=== PATIENT | female | born 2000 | race Caucasian/White ===

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

== ENCOUNTER → 2019-03-19 11:10 | Outpatient (CLI) | payer MEDICAID, SELFPAY ==
[2019-03-19 12:32] LABS: Basophils % 0.3 % (0.1-2.0); Eosinophils # 0.1 K/mm3 (0.0-0.4); Eosinophils % 0.9 % (0.1-12.0); Hematocrit 47.7 % (37.0-47.0); Hemoglobin 14.9 g/dL (12.2-16.2); Lymphocytes # 1.7 K/mm3 (0.7-4.5); Lymphocytes % 30.2 % (10-50); Mean Corpuscular HGB Conc 31.4 g/dL (31.8-35.4); Mean Corpuscular Hemoglobin 31.4 pg (27.0-31.2); Mean Platelet Volume 8.2 fl (7.4-10.4); Monocytes # 0.2 K/mm3 (0.1-1.0); Monocytes % 3.9 % (1.7-9.3); Neutrophils # 3.6 K/mm3 (1.8-7.8); Neutrophils % 64.7 % (37.0-80.0); Platelet Count 325 K/mm3 (142-424); Red Blood Count 4.77 M/mm3 (4.20-5.40); Red Cell Distribution Width 12.6 % (11.5-17.5); White Blood Count 5.6 K/mm3 (4.5-13.0)
[2019-03-19 22:02] LABS: Alanine Aminotransferase 12 U/L (12-78); Albumin Level 4.7 gm/dL (3.4-5.0); Albumin/Globulin Ratio 1.3 (1.1-1.8); Alkaline Phosphatase 94 U/L (46-116); Anion Gap 18.5 mEq/L (5-15); Aspartate Amino Transferase 9 U/L (15-37); Bilirubin,Total 0.4 mg/dL (0.2-1.0); Blood Urea Nitrogen 5 mg/dL (7-18); Calcium 9.3 mg/dL (8.5-10.1); Carbon Dioxide 26 mmol/L (21.0-32.0); Chloride 100 mmol/L (98-107); Chol/HDL Ratio 2.3 (1-3.5); Cholesterol 163 mg/dL (140-200); Creatinine,Serum 0.65 mg/dL (0.55-1.02); Estimated Glomerular Filt Rate 116 ml/min (>60); GFR (African American) 141 ML/MIN (>60); Globulin 3.5 gm/dl (1.3-3.2); Glucose 79 mg/dL (74-106); HDL Cholesterol 70 mg/dL (29-89); LDL Cholesterol 80 mg/dL (0-130); Potassium 3.5 mmoL/L (3.5-5.1); Sodium 141 mmol/L (136-145); T4 (Thyroxine) 10.4 ug/dl (5.4-10.6); Thyroid Stimulating Hormone 2.17 uIU/ml (0.516-4.13); Total Protein,Serum 8.2 gm/dL (6.4-8.2); Triglycerides 64 mg/dL (30-200); VLDL Cholesterol 13 mg/dL (0-40)
[2019-03-20 14:47] LABS: Vitamin D 25 Hydroxy 13.1 ng/mL (30.0-100.0)
== END ==
PROVIDERS: Visit Provider Nurse Practitioner Family
DX: F90.9 Attention-deficit hyperactivity disorder, unspecified type (principal); R53.83 Other fatigue; E55.9 Vitamin D deficiency, unspecified
CPT/HCPCS: 36415; 80053; 80061; 82652; 84436; 84443; 85025

== ENCOUNTER → 2019-08-24 10:50 | Outpatient (CLI) | payer MEDICAID, SELFPAY ==
--- NOTE | 2019-08-24 10:55 | XR_ITS ---
PROCEDURE: XR SCOLIOSIS SURVEY CLINICAL INDICATION: back pain COMPARISON: No exams were available for comparison FINDINGS: There is very minor diffuse levo scoliotic curvature of the thoracic and lumbar spine from approximately T2-L5 probably less than 5 degrees all thoracic and lumbar vertebrae appear intact. There is no paraspinal mass. IMPRESSION: Minor diffuse levo scoliotic curvature thoracic and lumbar spine Dictated by: Dr. Jesus Hartman MD 08/24/2019 11:[address] Jesus Hartman MD in [place] 08/24/2019 11:26
== END ==
PROVIDERS: PCP Nurse Practitioner Family; Visit Provider Nurse Practitioner Family
DX: M54.9 Dorsalgia, unspecified (principal)
CPT/HCPCS: 72081

== ENCOUNTER 2019-10-25 14:30 | Outpatient (RCR) | payer MEDICAID, SELFPAY | END 2019-10-25 14:35 | disposition home or self-care (01) | LOC: PT 14:30 | PROVIDERS: PCP Nurse Practitioner Family; Visit Provider Orthopaedic Surgery Adult Reconstructive Orthopaedic Surgery | DX: M54.5 Low back pain (principal) | CPT/HCPCS: 97110; 97163 ==

== ENCOUNTER 2019-12-20 13:10 | Emergency (ER) | payer MEDICAID, SELFPAY ==
[2019-12-20 13:49] VITALS: BP 122/58; PULSE 78; RESP 20; TEMP 37.1; O2SAT 100; BMI 15.2
--- NOTE | 2019-12-20 14:00 | HMH.EDUTC ---
[facility] [place] Clinical Impression: Hematuria Qualifiers: Hematuria type: unspecified type Qualified Code(s): R31.9 - Hematuria, unspecified Disposition: Home, Self-Care Condition on Discharge: Good Instructions: Blood in Urine, DI for Hematuria Additional Instructions: Make sure to drink plenty of fluids *Follow up with Family doctor if symptoms return or worsen Straight to ER if any difficulty in urination or worsening of blood in urine or any life threatening symptoms Return if needed Referrals: Ivon Shahid APRN [Primary Care Provider] - As needed Time of Disposition: 14:05 Medical Decision Making - Bhanu Inquiry Pt receiving controlled substance: No Bhanu was queried for this patient: No Vital Signs: 12/20/19 13:49 12/20/19 14:08 Temperature 98.7 F 98.7 F Temperature Source Oral Pulse Rate 78 Pulse Rate [Right Brachial] 78 Respiratory Rate 20 20 Blood Pressure 122/58 L Blood Pressure [Right Arm] 122/58 L Blood Pressure Mean [Right Arm] 79 Blood Pressure Source [Right Arm] Automatic Cuff Blood Pressure Position [Right Arm] Sitting 02 Sat by Pulse Oximetry 100 Oxygen Delivery Method Room Air - Lab Data Lab results reviewed: Yes: I reviewed the patient's lab results. Medical Decision Narrative: Discussed transfer to the ED for further evaluation and examination for Kidney Stones and patient declined States that she is feeling much better and no longer having pressure and unsure if she may be starting her monthly because it is time and she would follow up with her PCP or go straight to ER if symptoms return [facility] [place] HPI - General Stated complaint: Possible bladder infection Time Seen by Provider: 12/20/19 14:00 Mode of Arrival: Ambulatory Source of Information: Patient Limitations: No Limitations Description of Symptoms (Recalled from Triage Doc. by RN): PATIENT C/O PRESSURE AND BLOOD WITH URINATION SINCE YESTERDAY HEENT Symptoms (Recalled from RN notes): No Resp Symptoms (Recalled from RN notes): No Skin Symptoms (Recalled from RN notes): No MS Symptoms (Recalled from RN notes): No Functional Status (Recalled from RN notes): WNL - History of Present Illness Provider Complaint: Mother states that she complained of feeling of pressure and feeling of urgency yesterday and she urinated and noticed a small amount of blood on the tissue States that she felt like something scratched her States that today it is better but wanted to get checked for UTI - Related Data Previous Rx's Medication Instructions Recorded ergocalciferol (vitamin D2) 1,250 50,000 unit PO QWEEK #12 cap 09/19/19 mcg (50,000 unit) capsule loratadine 10 mg tablet 10 mg PO DAILY #90 tab 09/19/19 clonidine HCl 0.2 mg tablet See Rx Instructions .ROUTE 12/04/19 .COMPLEX #90 tab dextroamphetamine-amphetamine ER 25 mg PO DAILY 30 Days #30 each 12/13/19 25 mg capsule,3 bead,ext release 24hr Allergies Allergy/AdvReac Type Severity Reaction Status Date / Time No Known Allergies Allergy Verified 12/12/19 12:57 - Worker's Comp Is this a Worker's Comp case?: No [facility] History - Hepatitis A Screen Drug use history?: No High risk sexual behaviors?: No History of sexually transmitted infection?: No Currently employed?: No Childcare worker?: No Do you have indoor plumbing?: Yes Do you have electricity?: Yes Attestation statement:: This patient has been screened for Hepatitis A risk factors. I have reviewed the patient's past medical history: Yes Medical History: Reports:: Anxiety Denies:: Diabetes Mellitus Type 1, Diabetes Mellitus Type 2 Other Medical History: Reports: Other Comment: ADHD Other Surgeries: Yes: No Previous Surgery, Other Amputation: No Fractures: No Comment: PREMATURE/TRACHEOTOMY - Social History Smoking Status: Current every day smoker Tobacco Type: cigarettes # Packs/Day (cigarettes): 1 Alcohol Intake: never Alcohol Intake Frequency:: other Substance Use Type: denies
[2019-12-20 14:08] VITALS: BP 122/58; PULSE 78; RESP 20; TEMP 37.1; O2SAT 100
[2019-12-20 20:39] LABS: Apearance,Urine Clear (Clear); Color,Urine Yellow (Yellow); PH,Urine 5.5 (5.0-8.5); Protein,Urine Negative (Negative)
[2019-12-20 20:40] LABS: Bilirubin,Urine Negative (Negative); Blood, Urine 2+ (Negative); Glucose,Urine (UA) Negative (Negative); Ketones,Urine Negative (Negative)
[2019-12-20 20:41] LABS: UTC Leukocyte Esterase,Urine Negative (Negative); UTC Nitrate,Urine Negative (Negative); Urobilinogen,Urine 0.2 EU/dl (0.2)
== END 2019-12-20 14:11 | disposition home or self-care (01) ==
PROVIDERS: Emergency Provider Nurse Practitioner; PCP Nurse Practitioner Family
DX: R31.9 Hematuria, unspecified (principal); Z87.442 Personal history of urinary calculi; F41.9 Anxiety disorder, unspecified; F17.210 Nicotine dependence, cigarettes, uncomplicated
CPT/HCPCS: 81003; 99201

== ENCOUNTER 2019-12-25 14:35 | Emergency (ER) | payer MEDICAID, SELFPAY ==
[2019-12-25 14:49] VITALS: BP 121/79; PULSE 91; RESP 20; TEMP 36.6; O2SAT 99; BMI 13.9
--- NOTE | 2019-12-25 15:20 | HMH.EDUTC ---
[facility] [place] Dis[place] Clinical Impression: UTI (urinary tract infection) Qualifiers: Urinary tract infection type: site unspecified Hematuria presence: with hematuria Qualified Code(s): N39.0 - Urinary tract infection, site not specified Disposition: Home, Self-Care Condition on Discharge: Good Instructions: Urinary Tract Infection, DI for Urinary Tract Infection (UTI) Additional Instructions: Drink plenty of fluids. Take tylenol or ibuprofen for pain or fever. Take the medications as directed. Follow up with your regular doctor. GO TO THE ER FOR ANY WORSENING SYMPTOMS The pyridium will make your urine turn orange, this is an expected side effect. It will stain your clothes if it comes into contact with them. Prescriptions: Sulfamethoxazole/Trimethoprim [Bactrim DS tablet] 1 each PO BID 7 Days #14 tab Transmission Status: [facility] to [facility] Phenazopyridine HCl [Pyridium 200mg Tablet] 200 pow PO TID #6 tab Transmission Status: Sent to [facility] Referrals: Ivon Shahid APRN [Primary Care Provider] - Time of Disposition: 15:23 Medical Decision Making - Medical Records Medical records reviewed: No: I reviewed the patient's medical records. - Bhanu Inquiry Pt receiving controlled substance: No Vital Signs: 12/25/19 14:49 Temperature 97.8 F Temperature Source Oral Pulse Rate [Right Brachial] 91 H Respiratory Rate 20 Blood Pressure [Right Arm] 121/79 Blood Pressure Mean [Right Arm] 93 Blood Pressure Source [Right Arm] Automatic Cuff Blood Pressure Position [Right Arm] Sitting 02 Sat by Pulse Oximetry 99 Oxygen Delivery Method Room Air - Lab Data Lab results reviewed: Yes: I reviewed the patient's lab results. Orders (Tests/Meds): ORDERS Category Date Time Status Urine Culture Stat Micro 12/25/19 14:50 Received Medical Decision Narrative: I wanted to send her to the ER, but her and her mother both refuse at this time. [facility] [place] HPI - General Stated complaint: poss uti Time Seen by Provider: 12/25/19 14:55 Mode of Arrival: Ambulatory Source of Information: Patient Limitations: No Limitations Description of Symptoms (Recalled from Triage Doc. by RN): PATIENT C/O PRESSURE AND PAIN WITH URINATION X 1 WEEK. RECENTLY SEEN FOR SAME SYMPTOMS AND WAS DIAGNOSED WITH HEMATURIA. STATES SYMPTOMS ARE NOT BETTER HEENT Symptoms (Recalled from RN notes): No Resp Symptoms (Recalled from RN notes): No Skin Symptoms (Recalled from RN notes): No MS Symptoms (Recalled from RN notes): No Functional Status (Recalled from RN notes): WNL - History of Present Illness Provider Complaint: She c/o continued burning and feeling pressure while urinating. She denies back pain. - Related Data Previous Rx's Medication Instructions Recorded ergocalciferol (vitamin D2) 1,250 50,000 unit PO QWEEK #12 cap 09/19/19 mcg (50,000 unit) capsule loratadine 10 mg tablet 10 mg PO DAILY #90 tab 09/19/19 clonidine HCl 0.2 mg tablet See Rx Instructions .ROUTE 12/04/19 .COMPLEX #90 tab dextroamphetamine-amphetamine ER 25 mg PO DAILY 30 Days #30 each 12/13/19 25 mg capsule,3 bead,ext release 24hr Phenazopyridine HCl [Pyridium 200 pow PO TID #6 tab 12/25/19 200mg Tablet] Sulfamethoxazole/Trimethoprim 1 each PO BID 7 Days #14 tab 12/25/19 [Bactrim DS tablet] Allergies Allergy/AdvReac Type Severity Reaction Status Date / Time No Known Allergies Allergy Verified 12/12/19 12:57 - Worker's Comp Is this a Worker's Comp case?: No [facility] History - Hepatitis A Screen Drug use history?: No High risk sexual behaviors?: No History of sexually transmitted infection?: No Currently employed?: No Childcare worker?: No Do you have indoor plumbing?: Yes Do you have electricity?: Yes Attestation statement:: This patient has been screened for Hepatitis A risk factors. I have reviewed the patient's past medical history: Yes Medical History: Reports:: Anxiety Denies:: Diabete
[2019-12-25 15:28] VITALS: BP 121/79; PULSE 91; RESP 20; TEMP 36.6; O2SAT 99
[2019-12-25 17:18] LABS: Color,Urine Yellow (Yellow)
[2019-12-25 17:19] LABS: Apearance,Urine Clear (Clear); Bilirubin,Urine Negative (Negative); Blood, Urine 1+ (Negative); Glucose,Urine (UA) Negative (Negative); Ketones,Urine Negative (Negative); PH,Urine 5.5 (5.0-8.5); Protein,Urine Negative (Negative); UTC Leukocyte Esterase,Urine Negative (Negative); UTC Nitrate,Urine Negative (Negative); Urobilinogen,Urine 0.2 EU/dl (0.2)
== END 2019-12-25 15:36 | disposition home or self-care (01) ==
PROVIDERS: Emergency Provider Nurse Practitioner Family; PCP Nurse Practitioner Family
DX: N30.01 Acute cystitis with hematuria (principal); F41.9 Anxiety disorder, unspecified
CPT/HCPCS: 81003; 87086; 99201

== ENCOUNTER → 2020-09-10 22:16 | Outpatient (CLI) | payer MEDICAID, SELFPAY ==
[2020-09-10 22:35] LABS: Basophils # 0.1 K/mm3 (0-0.2); Basophils % 0.9 % (0.1-2.0); Eosinophils % 0.5 % (0.1-12.0); Hematocrit 47.7 % (37.0-47.0); Hemoglobin 15.5 g/dL (12.2-16.2); Lymphocytes # 1.9 K/mm3 (0.7-4.5); Lymphocytes % 24.8 % (10-50); Mean Corpuscular HGB Conc 32.6 g/dL (31.8-35.4); Mean Corpuscular Hemoglobin 30.7 pg (27.0-31.2); Mean Corpuscular Volume 94.2 fl (81-99); Monocytes # 0.4 K/mm3 (0.1-1.0); Monocytes % 5.1 % (1.7-9.3); Neutrophils # 5.3 K/mm3 (1.8-7.8); Neutrophils % 68.6 % (37.0-80.0); Platelet Count 371 K/mm3 (142-424); Red Blood Count 5.07 M/mm3 (4.20-5.40); Red Cell Distribution Width 13.6 % (11.5-17.5); White Blood Count 7.8 K/mm3 (4.8-10.8)
[2020-09-10 22:42] LABS: Alanine Aminotransferase 13 U/L (12-78); Albumin/Globulin Ratio 1.7 (1.1-1.8); Alkaline Phosphatase 67 U/L (38-126); Anion Gap 13.4 mEq/L (5-15); Aspartate Amino Transferase 27 U/L (14-36); Bilirubin,Total 0.5 mg/dl (0.2-1.3); Blood Urea Nitrogen 15 mg/dl (7-17); Calcium 9.6 mg/dl (8.4-10.2); Carbon Dioxide 28 mmol/L (22.0-30.0); Chloride 100 mmol/L (98-107); Chol/HDL Ratio 2.2 (1-3.5); Cholesterol 164 mg/dl (140-200); Estimated Glomerular Filt Rate 126 ml/min (>60); GFR (African American) 153 ML/MIN (>60); Glucose 82 mg/dl (74-100); HDL Cholesterol 73 mg/dl (40-60); Potassium 4.4 mmoL/L (3.5-5.1); Sodium 137 mmol/L (136-145); Triglycerides 75 mg/dl (30-150); VLDL Cholesterol 15 mg/dL (0-40)
[2020-09-10 23:00] LABS: T4 (Thyroxine) 9.8 ug/dl (5.53-11.0)
[2020-09-10 23:13] LABS: Thyroid Stimulating Hormone 2.08 uIU/mL (0.465-4.68)
== END ==
PROVIDERS: Visit Provider Nurse Practitioner Family
DX: Z00.00 Encounter for general adult medical examination without abnormal findings (principal)
CPT/HCPCS: 80053; 80061; 82306; 84436; 84443; 85025

== ENCOUNTER → 2020-11-11 13:48 | Outpatient (CLI) | payer MEDICAID, SELFPAY ==
--- NOTE | 2020-11-11 13:48 | US_ITS ---
PROCEDURE: US BREAST LT COMPLETE CLINICAL INDICATION: lump in breast Lump in the upper left breast COMPARISON: No exams were available for comparison FINDINGS: Heterogeneous echo dense fibroglandular tissue noted. No solid or cystic mass is apparent. Specifically, in the area of palpable concern in the 1 to 2 o'clock position of the left breast there is no sonographic abnormality. There are some mildly prominent nodes in the left axilla measuring up to 2.3 by 0.9 cm. IMPRESSION: No sonographic detectable nodules apparent within the left breast. Negative ultrasound does not exclude the possibility of underlying pathology. Please correlate with physical exam. Mildly prominent left axillary lymph nodes Dictated by: Anastacio Evans MD 11/25/2020 11:29 Anastacio Evans MD in [place] 11/25/2020 11:29
== END ==
PROVIDERS: PCP Nurse Practitioner Family; Visit Provider Nurse Practitioner Family
DX: N63.20 Unspecified lump in the left breast, unspecified quadrant (principal)
CPT/HCPCS: 76641

== ENCOUNTER → 2021-02-23 17:54 | Outpatient (CLI) | payer MEDICAID, SELFPAY ==
[2021-02-23 17:56] LABS: Adenovirus,PCR Not Detected (NotDetected); Bordetella Pertussis Not Detected (NotDetected); Chlamydophila Pneumoniae, PCR Not Detected (NotDetected); Coronavirus 19, PCR Not Detected (NotDetected); Coronavirus 229E Not Detected (NotDetected); Coronavirus NL63 Not Detected (NotDetected); Coronavirus OC43 Not Detected (NotDetected); Coronovirus HKU1,PCR Not Detected (NotDetected); Human Metapneumovirus Not Detected (NotDetected); Influenza A, PCR Not Detected (NotDetected); Influenza AH1, 2009 Not Detected (NotDetected); Influenza AH1, PCR Not Detected (NotDetected); Influenza AH3,PCR Not Detected (NotDetected); Influenza B, PCR Not Detected (NotDetected); Mycoplasma Pneumoniae, PCR Not Detected (NotDetected); Parainfluenza 1, PCR Not Detected (NotDetected); Parainfluenza 2, PCR Not Detected (NotDetected); Parainfluenza 3, PCR Not Detected (NotDetected); Parainfluenza 4, PCR Not Detected (NotDetected); Respiratory Syncytial Virus Not Detected (NotDetected)
[2021-02-23 21:05] LABS: Rhinovirus/Enterovirus Detected (NotDetected)
== END ==
PROVIDERS: Visit Provider Nurse Practitioner Family
DX: Z20.822 Contact with and (suspected) exposure to COVID-19 (principal); J20.9 Acute bronchitis, unspecified; B34.1 Enterovirus infection, unspecified
CPT/HCPCS: 87581; 87632; 87798; C9803; U0003; U0005

== ENCOUNTER 2021-03-03 12:25 | Emergency (ER) | payer MEDICAID, SELFPAY ==
[2021-03-03 14:03] VITALS: BP 142/85; PULSE 89; RESP 21; TEMP 37; O2SAT 99; BMI 14.4
--- NOTE | 2021-03-03 14:13 | HMH.EDUTC ---
[facility] [place] Dis[place] Clinical Impression: Bronchitis Disposition: Home, Self-Care Condition on Discharge: Good Instructions: Acute Bronchitis Additional Instructions: ? Monitor temp. Tylenol every 4 hours as needed and / or ibuprofen every 6 hours as needed ( As long as your primary care physician has told you that it ok to take both. For fever/aches/pains ER if no less than 101 despite Tylenol or Motrin ? Humidifier/vaporizer or hot steamy shower *Start steroid today. Helps with inflammation therefore, cough and wheezing. Follow directions on the package. Reviewed side effects. Patient reports taking them before. Follow up IMMEDIATELY for new or worsening of symptoms OR no noticeable improvement over the next 48-72 hours. 911 immediately for any life threatening symptoms such as chest pain or difficulty breathing Prescriptions: prednisoLONE [Prednisolone] 7.5 mg PO BID 4 Days #20 ml Transmission Status: Received by [facility] Referrals: Ivon Shahid APRN [Primary Care Provider] - As needed Time of Disposition: 14:45 Medical Decision Making - Bhanu Inquiry Pt receiving controlled substance: No Bhanu was queried for this patient: No Vital Signs: 03/03/21 14:03 03/03/21 14:56 Temperature 98.6 F 98.4 F Temperature Source Oral Pulse Rate 67 Pulse Rate [Left] 89 Respiratory Rate 21 18 Blood Pressure 137/89 Blood Pressure [Right Arm] 142/85 H Blood Pressure Mean [Right Arm] 104 02 Sat by Pulse Oximetry 99 - Lab Data Lab results reviewed: Yes: I reviewed the patient's lab results. Lab Results 03/03/21 14:17: [facility] Clinic Negative Orders (Tests/Meds): ED MEDICATIONS Discontinued Medications Generic Name Dose Route Start Last Admin Trade Name Landen PRN Reason Stop Dose Admin Ceftriaxone Sodium 1 gm 03/03/21 14:43 03/03/21 14:55 Ceftriaxone 1gm Vial IM 03/03/21 14:44 1 gm ONCE ONE Administration Lidocaine HCl 0 ml 03/03/21 14:43 Lidocaine 1% 5ml Pf Vial IM 03/03/21 14:44 ONCE ONE Lidocaine HCl 2.5 ml 03/03/21 14:47 03/03/21 14:56 Lidocaine 1% 10ml Mdv IM 03/03/21 14:48 2.5 ml ONCE ONE Administration ORDERS Category Date Time Status Covid-19 Nasal PCR ([facility]) Routine Lab 03/03/21 14:56 Ordered [facility] [place] HPI - General Stated complaint: cough Time Seen by Provider: 03/03/21 14:13 Mode of Arrival: Ambulatory Source of Information: Patient Limitations: No Limitations Description of Symptoms (Recalled from Triage Doc. by RN): pt c/o cough, congestion, and nasal drainage x2 weeks. pt was seen at her pcp and completed a round of antibiotics for bronchitis. pt states she still does not feel any better. HEENT Symptoms (Recalled from RN notes): Yes (nasal drainage and congestion) Resp Symptoms (Recalled from RN notes): Yes (cough) Skin Symptoms (Recalled from RN notes): No MS Symptoms (Recalled from RN notes): No Functional Status (Recalled from RN notes): na - History of Present Illness Provider Complaint: Patient states that she was recently treated by her PCP for bronchitis but states that she has finished the medication and still not feeling any better States that she is still having cough, sinus congestion and drainage States that today she was still having the cough so she came in to get checked out - Related Data Previous Rx's Medication Instructions Recorded ergocalciferol (vitamin D2) 1,250 50,000 unit PO QWEEK #12 cap 09/19/19 mcg (50,000 unit) capsule clonidine HCl 0.2 mg tablet See Rx Instructions .ROUTE 09/24/20 .COMPLEX #90 tab loratadine 10 mg tablet 10 mg PO DAILY #90 tab 09/24/20 dextroamphetamine-amphetamine ER 25 mg PO DAILY 30 Days #30 each 12/26/20 25 mg capsule,3 bead,ext release 24hr azithromycin 200 mg/5 mL oral See Rx Instructions PO .COMPLEX 02/23/21 suspension #30 ml prednisoLONE [Prednisolone] 7.5 mg PO BID 4 Days #20 ml 03/03/21 Allergies Allergy/AdvReac Type Severity Reaction Status
[2021-03-03 14:31] LABS: UTC Pregnancy Test, Urine Negative (Negative)
[2021-03-03 14:56] VITALS: BP 137/89; PULSE 67; RESP 18; TEMP 36.9
== END 2021-03-03 15:06 | disposition home or self-care (01) ==
PROVIDERS: Emergency Provider Nurse Practitioner; PCP Nurse Practitioner Family
DX: J20.9 Acute bronchitis, unspecified (principal); Z20.822 Contact with and (suspected) exposure to COVID-19; F17.210 Nicotine dependence, cigarettes, uncomplicated
CPT/HCPCS: 81025; 96372; 99202; C9803; G0463; U0003; U0005

== ENCOUNTER → 2021-05-01 17:32 | Outpatient (CLI) | payer MEDICAID, SELFPAY | PROVIDERS: Visit Provider Nurse Practitioner Family | DX: J02.9 Acute pharyngitis, unspecified (principal) ==

== ENCOUNTER → 2021-05-04 08:47 | Outpatient (CLI) | payer MEDICAID, SELFPAY | PROVIDERS: Visit Provider Nurse Practitioner | DX: U07.1 COVID-19 (principal) | CPT/HCPCS: C9803; U0003; U0005 ==

== ENCOUNTER 2021-09-02 16:09 | Emergency (ER) | payer MEDICAID, SELFPAY ==
--- NOTE | 2021-09-02 16:06 | ECG_ITS ---
APPROVED REPORT Exam: Resting ECG HR:122 bpm ECG Measurements Heart Rate 122 AXES LA 126 P 84 QRSd 77 QRS 81 QT 284 T 49 QTc 357 Conclusion SINUS TACHYCARDIA NONSPECIFIC ST & T-WAVE ABNORMALITY ABNORMAL RHYTHM ECG UNCONFIRMED REPORT Electronically signed by : Oniel Clark MD 09/04/2021 10:32:59
[2021-09-02 16:19] VITALS: BP 132/91; PULSE 125; RESP 17; TEMP 36.8; O2SAT 100; BMI 14.6
--- NOTE | 2021-09-02 16:31 | XR_ITS ---
PROCEDURE INFORMATION: Exam: XR Chest Exam date and time: 09/02/2021 4:39 PM Age: 21 years old Clinical indication: Pain; Chest pressure TECHNIQUE: Imaging protocol: XR of the chest. Views: 2 views. COMPARISON: CR XR SCOLIOSIS SURVEY 08/24/2019 10:56 AM FINDINGS: Airway: Patent Lungs: Emphysematous and COPD related lung changes suggested in the chest. There is also evidence suggesting bronchiectasis is specifically in the upper lobes, as well as segmental bronchial wall thickening. No large airspace consolidations or evidence for acute interstitial/airspace disease is noted. Pleural spaces: Unremarkable. No pleural effusion. No pneumothorax. Heart/Mediastinum: Unremarkable. No cardiomegaly. Bones/joints: No acute skeletal abnormality or aggressive osseous lesion. IMPRESSION: Lung findings as could be seen with COPD/emphysema, as well as evidence for bronchiectasis and bronchitis. In this young female, this would raise concern for entities such as cystic fibrosis or other chronic airways disease. No acute pulmonary pathology noted at this time. Case discussion is welcomed.
[2021-09-02 16:58] VITALS: BP 135/88; PULSE 87; PULSE 94; RESP 16; O2SAT 98; O2SAT 99
[2021-09-02 17:00] VITALS: BP 138/92; PULSE 92; PULSE 96; RESP 16; O2SAT 99
[2021-09-02 17:02] LABS: Basophils # 0.2 K/mm3 (0-0.2); Basophils % 2.1 % (0.1-2.0); Eosinophils # 0.1 K/mm3 (0.0-0.4); Eosinophils % 0.7 % (0.1-12.0); Hematocrit 51.1 % (37.0-47.0); Hemoglobin 16.6 g/dL (12.2-16.2); Lymphocytes # 2.1 K/mm3 (0.7-4.5); Lymphocytes % 24.3 % (10-50); Mean Corpuscular HGB Conc 32.5 g/dL (31.8-35.4); Mean Corpuscular Hemoglobin 32.7 pg (27.0-31.2); Mean Corpuscular Volume 100.5 fl (81-99); Mean Platelet Volume 8.6 fl (7.4-10.4); Monocytes # 0.8 K/mm3 (0.1-1.0); Monocytes % 9.4 % (1.7-9.3); Neutrophils # 5.5 K/mm3 (1.8-7.8); Neutrophils % 63.4 % (37.0-80.0); Platelet Count 157 K/mm3 (142-424); Red Blood Count 5.08 M/mm3 (4.20-5.40); Red Cell Distribution Width 13.7 % (11.5-17.5); White Blood Count 8.7 K/mm3 (4.8-10.8)
[2021-09-02 17:15] LABS: Chloride 102 mmol/L (98-107); Potassium 4.1 mmoL/L (3.5-5.1); Sodium 139 mmol/L (136-145)
[2021-09-02 17:18] LABS: Alanine Aminotransferase 19 U/L (12-78); Albumin Level 4.9 g/dl (3.5-5.0); Albumin/Globulin Ratio 1.4 (1.1-1.8); Alkaline Phosphatase 77 U/L (38-126); Anion Gap 13.1 mEq/L (5-15); Aspartate Amino Transferase 39 U/L (14-36); Bilirubin,Total 0.6 mg/dl (0.2-1.3); Blood Urea Nitrogen 15 mg/dl (7-17); Carbon Dioxide 28 mmol/L (22.0-30.0); Creatinine Clearance Estimated 95 mL/min (50-200); Estimated Glomerular Filt Rate 154 ml/min (>60); GFR (African American) 187 ML/MIN (>60); Globulin 3.4 g/dL (1.3-3.2); Total Protein,Serum 8.3 g/dl (6.3-8.2)
[2021-09-02 17:19] LABS: Calcium 9.8 mg/dl (8.4-10.2); Glucose 89 mg/dl (74-100)
[2021-09-02 17:30] VITALS: BP 129/94; PULSE 91; O2SAT 99
[2021-09-02 17:32] LABS: Troponin I < 0.01 ng/ml (0.00-0.034)
--- NOTE | 2021-09-02 17:54 | HMH.EDGENADL ---
ED Disposition Clinical Impression: Atypical chest pain Disposition: Home, Self-Care Condition on Discharge: Good Instructions: DI for Atypical Chest Pain Additional Instructions: Please follow-up with your primary care physician in 2 to 3 days for further management. Dicuss with your primary care physician regarding your chronic lung changes seen on your chest x ray may require further workup outpatient. Please return if symptoms recur, difficulty breathing or any other worsening symptoms. Prescriptions: methocarbamoL [Methocarbamol] 750 mg PO Q6HP PRN #20 tab PRN Reason: Moderate Pain Transmission Status: Received by [employer] Referrals: Aureliano Chua MD [Primary Care Provider] - - Critical Care Critical Care Time: No Attestation: On 09/02/21, the high probability of a clinically significant, sudden or life threatening deterioration of the following system(s) required my full and direct attention, intervention and personal management. The time I documented below is in addition to time spent performing reported procedures but includes the following listed in this critical care notation. Medical Decision Making - Medical Records Medical records reviewed: Yes: I reviewed the patient's medical records. - Bhanu Inquiry Pt receiving controlled substance: No Vital Signs: 09/02/21 16:19 09/02/21 16:58 09/02/21 17:00 Temperature 98.2 F Temperature Source Oral Pulse Rate 94 H 92 H Pulse Rate [Left Radial] 125 H Respiratory Rate 17 16 16 Blood Pressure 135/88 138/92 H Blood Pressure [Right Arm] 132/91 H Blood Pressure Mean 99 107 Blood Pressure Mean [Right Arm] 104 Blood Pressure Source Automatic Cuff Automatic Cuff Blood Pressure Position Sitting Sitting 02 Sat by Pulse Oximetry 100 99 99 Oxygen Delivery Method Room Air Room Air Room Air 09/02/21 17:30 09/02/21 18:36 Temperature 98.2 F Temperature Source Oral Pulse Rate 91 H 90 Pulse Rate [Left Radial] Respiratory Rate 17 Blood Pressure 129/94 H 119/80 Blood Pressure [Right Arm] Blood Pressure Mean Blood Pressure Mean [Right Arm] Blood Pressure Source Automatic Cuff Blood Pressure Position Sitting 02 Sat by Pulse Oximetry 99 Oxygen Delivery Method Room Air - Lab Data Lab results reviewed: Yes: I reviewed the patient's lab results. Lab Results 09/02/21 16:50: WBC 8.7, RBC 5.08, Hgb 16.6 H, Hct 51.1 H, MCV 100.5 H, MCH 32.7 H, MCHC 32.5, RDW 13.7, Plt Count 157, MPV 8.6, Neut % (Auto) 63.4, Lymph % (Auto) 24.3, Jackson % (Auto) 9.4 H, Eos % (Auto) 0.7, Baso % (Auto) 2.1 H, Neut # (Auto) 5.5, Lymph # (Auto) 2.1, Jackson # (Auto) 0.8, Eos # (Auto) 0.1, Baso # (Auto) 0.2 09/02/21 16:50: Sodium 139, Potassium 4.1, Chloride 102, Carbon Dioxide 28, Anion Gap 13.1, BUN 15, Creatinine 0.50 L, Estimated Creat Clear 95, Estimated GFR 154, Est GFR ( Amer) 187, Glucose 89, Calcium 9.8, Total Bilirubin 0.6, AST 39 H, ALT 19, Alkaline Phosphatase 77, Troponin I < 0.01, Total Protein 8.3 H, Albumin 4.9, Globulin 3.4 H, Albumin/Globulin Ratio 1.4 Result diagrams: 09/02/21 16:50 09/02/21 16:50 Medical Decision Narrative: Miss guzmna is a 21 yo female presenting ot the ED with chest pain resolved on arrival. Patient is afebrile and hemodynamically stable on arrival. Basic labs, trop, CXR are obtained for further evaluation results are remakrbale for CXR shows chronic emphysematous changes consistent with her chronic illness. Trop normal. Bedside ECG show snormal sinus rhythm. Patient is observed in ED and remains chest pain free. Patient given robaxin for outpatient management and informed to fu w her primary team for further management. Patient discharged in stable condition and informed to return if symptoms reoccur. General Adult HPI - General Chief complaint: Upper Respiratory Infection Stated complaint: CP Time Seen by Provider: 09/02/21 16:25 Mode of Arrival: Ambulatory Source of Information: Patient Amy
[2021-09-02 18:36] VITALS: BP 119/80; PULSE 90; RESP 17; TEMP 36.8; O2SAT 99
== END 2021-09-02 18:38 | disposition home or self-care (01) ==
PROVIDERS: Emergency Provider Student in an Organized Health Care Education/Training Program; PCP Emergency Medicine
DX: R07.89 Other chest pain (principal); F41.9 Anxiety disorder, unspecified; F90.9 Attention-deficit hyperactivity disorder, unspecified type; F17.210 Nicotine dependence, cigarettes, uncomplicated; Z79.899 Other long term (current) drug therapy
CPT/HCPCS: 71046; 80053; 84484; 85025; 93005; 99283

== ENCOUNTER → 2021-09-18 14:37 | Outpatient (CLI) | payer MEDICAID, SELFPAY | PROVIDERS: PCP Emergency Medicine; Visit Provider Nurse Practitioner Family | DX: R07.89 Other chest pain (principal) | CPT/HCPCS: 94060; 94618; 94726; 94729 ==

== ENCOUNTER → 2021-10-22 11:19 | Outpatient (CLI) | payer MEDICAID, SELFPAY ==
[2021-10-23 08:15] LABS: Alpha-1-Antitrypsin 196 mg/dL (100-188)
[2021-10-27 13:45] LABS: Alpha-1-Antitrypsin 195 mg/dL (100-188)
== END ==
PROVIDERS: PCP Emergency Medicine; Visit Provider Internal Medicine Pulmonary Disease
DX: R06.09 Other forms of dyspnea (principal); J43.9 Emphysema, unspecified; Z72.0 Tobacco use
CPT/HCPCS: 36415; 82103; 82104

== ENCOUNTER → 2021-11-04 15:24 | Outpatient (CLI) | payer MEDICAID, SELFPAY ==
--- NOTE | 2021-11-04 15:24 | CT_ITS ---
PROCEDURE INFORMATION: Exam: CT Chest Without Contrast; Diagnostic; High Resolution Exam date and time: 11/04/2021 3:41 PM Age: 21 years old Clinical indication: Shortness of breath; Prior surgery; Surgery type: PT was unsure she was a baby; Additional info: SOA TECHNIQUE: Imaging protocol: Diagnostic computed tomography of the chest without contrast. Exam was performed with high resolution protocol. Radiation optimization: All CT scans at this facility use at least one of these dose optimization techniques: automated exposure control; mA and/or kV adjustment per patient size (includes targeted exams where dose is matched to clinical indication); or iterative reconstruction. COMPARISON: CR XR CHEST 2V 09/02/2021 4:39 PM FINDINGS: Lungs: There is diffuse perihilar/central bronchiectasis and peribronchial thickening. Patchy ground-glass infiltrates scattered throughout the bilateral lungs, most notably in the right upper lobe. Lungs are negative for dominant mass or focal consolidation. Lungs are mildly hyperinflated. Pleural space: No evidence for effusion or pneumothorax. Heart: Unremarkable. No cardiomegaly. No pericardial effusion. Vasculature: Unremarkable. No aortic aneurysm. Lymph nodes: Unremarkable. No enlarged lymph nodes. Diaphragm: Large hiatal hernia and partial intrathoracic stomach. Bones/joints: Mild rotoscoliosis. Soft tissues: Unremarkable. Other findings: Numerous peripheral linear densities compatible with scarring. IMPRESSION: Diffuse perihilar/central bronchiectasis and peribronchial thickening. Patchy ground-glass infiltrates scattered throughout the bilateral lungs, most notably in the right upper lobe. This could be due to infectious process or exacerbation of chronic lung disease. Numerous peripheral linear densities compatible with scarring. Lungs are negative for dominant mass or focal consolidation. No evidence for effusion or pneumothorax. Large hiatal hernia and partial intrathoracic stomach. Mild rotoscoliosis. Lungs are mildly hyperinflated.
== END ==
PROVIDERS: PCP Emergency Medicine; Visit Provider Internal Medicine Pulmonary Disease
DX: R06.09 Other forms of dyspnea (principal); J84.89 Other specified interstitial pulmonary diseases
CPT/HCPCS: 71250

== ENCOUNTER 2022-03-06 01:06 | Emergency (ER) | payer MEDICAID, SELFPAY ==
--- NOTE | 2022-03-06 01:16 | HMH.EDGENADL ---
Discharge Plan Disposition Patient Disposition: Home, Self-Care Condition: Fair Prescriptions Prescriptions: No Action Anoro Ellipta 62.5-25 mcg/actuation blister with device 1 inh IH DAILY 90 Days Qty: 180 3RF albuterol sulfate 90 mcg/actuation HFA aerosol inhaler 2 inh IH QID PRN (Reason: shortness of breath or wheezing) 90 Days Qty: 8.5 2RF nicotine 7 mg/24 hr patch 24 hour 1 patch transdermal Q24H Qty: 28 1RF nicotine 14 mg/24 hr patch 24 hour 1 patch TD DAILY Qty: 28 2RF loratadine 10 mg tablet 10 mg PO DAILY Qty: 90 5RF fluticasone propionate [Flonase Allergy Relief] 50 mcg/actuation spray,suspension 1 spray intranasal DAILY Qty: 16 2RF Rx Instructions: administer into each nostril clonidine HCl 0.2 mg tablet See Rx Instructions .ROUTE .COMPLEX Qty: 30 5RF Dose Instruction: TAKE ONE TABLET BY MOUTH EVERY DAY AT BEDTIME Rx Instructions: TAKE ONE TABLET BY MOUTH EVERY DAY AT BEDTIME buspirone 5 mg tablet See Rx Instructions .ROUTE .COMPLEX Qty: 60 5RF Dose Instruction: TAKE ONE TABLET BY MOUTH TWICE DAILY Rx Instructions: TAKE ONE TABLET BY MOUTH TWICE DAILY Mydayis 25 mg capsule, ER triphasic 24 hr 25 mg PO DAILY Qty: 30 0RF Rx Instructions: per dimitri Referrals Follow up/Referrals: Jesse Clarke APRN [Primary Care Provider] - See instructions Activity Restrictions/Add. Instructions Additional Instructions/Restrictions: You have been evaluated for sore throat, throat tightness. Overall presentation is concerning for pharyngitis. Steroids should be effective for the next 24 to 48 hours. Please monitor your symptoms closely. Tylenol and Motrin for aches, pains, fever. Follow-up with your primary care doctor in 1 to 2 days for symptom recheck. Return to the emergency department at once for any new or worsening symptoms, pain, difficulty swallowing, difficulty breathing, any other concerns. Clinical Impressions Clinical Impression: Pharyngitis Instructions Patient Instructions: Sore Throat, DI for Viral Pharyngitis Discharge ED Provider: Blanca Bruno General Adult HPI General Chief complaint: Upper Respiratory Infection Stated complaint: throat feels like is closing up Time Seen by Provider: 03/06/22 01:09 History of Present Illness HPI narrative: 22-year-old female presenting to the emergency department with sore throat, throat tightness. Symptoms started yesterday morning. When she woke up, felt generally unwell. She had a sore throat, hard to swallow. Now it feels like her throat is tight. Hurts to talk. She has been eating and drinking without difficulty. She takes allergy medication and clonidine daily. No recent antibiotics or steroids. No pain medication or anti-inflammatories today. she has decreased her tobacco use. She has a history of restrictive lung disease and COPD, had prematurity and tracheostomy as an infant. Has never been intubated as an adult or hospitalized for respiratory problems. She sometimes gets pain like this and chest pain when she is anxious. Has been under recent stress. No fevers, chill, nausea, vomiting. No shortness of breath. No chest pain at this time. Related Data Previous Rx's Medication Instructions Recorded clonidine HCl 0.2 mg tablet See Rx Instructions .Route 10/07/21 .COMPLEX #30 tabs buspirone 5 mg tablet See Rx Instructions .Route 12/01/21 .COMPLEX #60 tabs fluticasone propionate 50 1 spray intranasal DAILY #16 grams 12/09/21 mcg/actuation nasal spray,suspension (Flonase Allergy Relief) loratadine 10 mg tablet 10 mg PO DAILY #90 tabs 12/09/21 nicotine 14 mg/24 hr daily 1 patch transdermal DAILY #28 ea 12/23/21 transdermal patch dextroamphetamine-amphetamine ER 25 mg PO DAILY ADHD #30 ea 02/05/22 25 mg capsule,3 bead,ext release 24hr (Mydayis) albuterol sulfate 90 mcg/actuation 2 inh inhalation QID PRN shortness 02/18/22 aerosol inhaler of breath
[2022-03-06 01:21] VITALS: BP 113/72; PULSE 100; RESP 18; TEMP 36.6; O2SAT 100; BMI 16.0
[2022-03-06 01:36] LABS: Coronavirus 19, PCR Not Detected (NotDetected); Influenza A, PCR Not Detected (NotDetected); Influenza B, PCR Not Detected (NotDetected)
[2022-03-06 02:08] VITALS: PULSE 87; O2SAT 99
[2022-03-06 02:15] VITALS: PULSE 70; O2SAT 97
[2022-03-06 02:30] VITALS: BP 116/68; PULSE 78; O2SAT 99
[2022-03-06 03:00] LABS: Strep Scrn Group A (Rapid) Negative (Negative)
[2022-03-06 03:14] VITALS: BP 114/78; PULSE 70; RESP 16; TEMP 36.6; O2SAT 99
== END 2022-03-06 03:17 | disposition home or self-care (01) ==
PROVIDERS: Emergency Provider Emergency Medicine; PCP Nurse Practitioner Family
DX: J02.9 Acute pharyngitis, unspecified (principal); Z79.899 Other long term (current) drug therapy; J44.9 Chronic obstructive pulmonary disease, unspecified; F90.9 Attention-deficit hyperactivity disorder, unspecified type
CPT/HCPCS: 87430; 99283; C9803; U0003; U0005

== ENCOUNTER 2022-03-10 10:22 | Emergency (ER) | payer MEDICAID, SELFPAY ==
[2022-03-10 11:35] VITALS: BP 111/71; PULSE 81; RESP 19; TEMP 36.7; O2SAT 99; BMI 15.3
--- NOTE | 2022-03-10 11:45 | EXP.UTC ---
Discharge Plan Disposition Patient Disposition: Home, Self-Care Condition: Good Prescriptions Prescriptions: New benzonatate 100 mg capsule 100 mg PO TID PRN (Reason: cough) Qty: 20 0RF azithromycin [Zithromax Z-Felton] 250 mg tablet See Rx Instructions .ROUTE .COMPLEX 5 Days Qty: 6 0RF Rx Instructions: For 250 mg dose pack: take 500 mg today (day 1), then 250 mg for 4 days (days 2-5) methylprednisolone [Medrol (Felton)] 4 mg tablets,dose pack See Rx Instructions .Route .COMPLEX 6 Days Qty: 21 0RF Rx Instructions: taper pack; No Action Anoro Ellipta 62.5-25 mcg/actuation blister with device 1 inh IH DAILY 90 Days Qty: 180 3RF albuterol sulfate 90 mcg/actuation HFA aerosol inhaler 2 inh IH QID PRN (Reason: shortness of breath or wheezing) 90 Days Qty: 8.5 2RF nicotine 7 mg/24 hr patch 24 hour 1 patch transdermal Q24H Qty: 28 1RF nicotine 14 mg/24 hr patch 24 hour 1 patch TD DAILY Qty: 28 2RF loratadine 10 mg tablet 10 mg PO DAILY Qty: 90 5RF fluticasone propionate [Flonase Allergy Relief] 50 mcg/actuation spray,suspension 1 spray intranasal DAILY Qty: 16 2RF Rx Instructions: administer into each nostril clonidine HCl 0.2 mg tablet See Rx Instructions .ROUTE .COMPLEX Qty: 30 5RF Dose Instruction: TAKE ONE TABLET BY MOUTH EVERY DAY AT BEDTIME Rx Instructions: TAKE ONE TABLET BY MOUTH EVERY DAY AT BEDTIME buspirone 5 mg tablet See Rx Instructions .ROUTE .COMPLEX Qty: 60 5RF Dose Instruction: TAKE ONE TABLET BY MOUTH TWICE DAILY Rx Instructions: TAKE ONE TABLET BY MOUTH TWICE DAILY Mydayis 25 mg capsule, ER triphasic 24 hr 25 mg PO DAILY Qty: 30 0RF Rx Instructions: per dimitri Referrals Follow up/Referrals: Jesse Clarke APRN [Primary Care Provider] - See instructions Activity Restrictions/Add. Instructions Additional Instructions/Restrictions: *Monitor Temp, Over the counter Motrin or Tylenol as directed/as needed Tylenol every 4 hours and Motrin every 6 hours (as long as your family doctor has told you that you can take it) for fever or pain. and straight to ER if unable to lower temp less than 101.0 after medication given *Warm salt water gargles may help to soothe the throat *Throat Lozenges? *Warm fluids like tea with honey may help to soothe the throat? *Sleep elevated *Humidifier/Vaporizer Your throat swab was sent for culture. Those results are typically sent to your primary care. Be sure to follow up in 2-3 days with your family doctor/primary care physician if no improvement so they can review those result and treat if necessary. If you don?t have a primary care doctor, I recommend you get one but in the mean time, you will have to return to a walk in clinic Follow up IMMEDIATELY for new or worsening symptoms or no Noticeable improvement over the next 48-72 hours. 911 for difficulty breathing or swallowing Clinical Impressions Clinical Impression: Bronchitis, Sinusitis Instructions Patient Instructions: DI for Sinusitis, Sinusitis, Acute Bronchitis Discharge ED Provider: Jolanta Jones [facility] General Stated complaint: lung pain, sob Time Seen by Provider: 03/10/22 11:48 History of Present Illness Provider Complaint: Patient states that she was in the ED about 4-5 days ago for sore throat but she has got worse States that now her throat is still sore, she has a deep cough and at times she is coughing up some mucous, sinus congestion and pressure and loss her voice State that today she was feeling worse so she came in Related Data Previous Rx's Medication Instructions Recorded clonidine HCl 0.2 mg tablet See Rx Instructions .Route 10/07/21 .COMPLEX #30 tabs buspirone 5 mg tablet See Rx Instructions .Route 12/01/21 .COMPLEX #60 tabs fluticasone propionate 50 1 spray intranasal DAILY #16 grams 12/09/21 mcg/actuation nasal spray,suspension (Flonase A
[2022-03-10 12:13] LABS: UTC Strep Screen (Rapid) Negative (Negative)
[2022-03-10 12:14] VITALS: BP 111/71; PULSE 81; RESP 19; TEMP 36.7; O2SAT 99
== END 2022-03-10 12:24 | disposition home or self-care (01) ==
PROVIDERS: Emergency Provider Nurse Practitioner; PCP Nurse Practitioner Family
DX: J40 Bronchitis, not specified as acute or chronic (principal); J32.9 Chronic sinusitis, unspecified
CPT/HCPCS: 87880; 99212; G0463

== ENCOUNTER 2022-03-15 10:25 | Emergency (ER) | payer MEDICAID, SELFPAY ==
[2022-03-15] VITALS (8 sets, daily range): BP systolic 101–169; BP diastolic 64–107; PULSE 77–111; RESP 16–19; TEMP 36.7–37.3; O2SAT 97–100; BMI 16.2; BMI 15.6
--- NOTE | 2022-03-15 12:16 | EXP.UTC ---
Discharge Plan Disposition Patient Disposition: Still a Patient Condition: Good Prescriptions Prescriptions: New omeprazole 20 mg capsule,delayed release(DR/EC) 20 mg PO DAILY 84 Days Qty: 84 0RF No Action Anoro Ellipta 62.5-25 mcg/actuation blister with device 1 inh IH DAILY 90 Days Qty: 180 3RF albuterol sulfate 90 mcg/actuation HFA aerosol inhaler 2 inh IH QID PRN (Reason: shortness of breath or wheezing) 90 Days Qty: 8.5 2RF nicotine 7 mg/24 hr patch 24 hour 1 patch transdermal Q24H Qty: 28 1RF nicotine 14 mg/24 hr patch 24 hour 1 patch TD DAILY Qty: 28 2RF fluticasone propionate [Flonase Allergy Relief] 50 mcg/actuation spray,suspension 1 spray intranasal DAILY Qty: 16 2RF Rx Instructions: administer into each nostril buspirone 5 mg tablet See Rx Instructions .ROUTE .COMPLEX Qty: 60 5RF Dose Instruction: TAKE ONE TABLET BY MOUTH TWICE DAILY Rx Instructions: TAKE ONE TABLET BY MOUTH TWICE DAILY Mydayis 25 mg capsule, ER triphasic 24 hr 25 mg PO DAILY Qty: 30 0RF Rx Instructions: per gaieny benzonatate 100 mg capsule 100 mg PO TID PRN (Reason: cough) Qty: 20 0RF azithromycin [Zithromax Z-Felton] 250 mg tablet See Rx Instructions .ROUTE .COMPLEX 5 Days Qty: 6 0RF Rx Instructions: For 250 mg dose pack: take 500 mg today (day 1), then 250 mg for 4 days (days 2-5) methylprednisolone [Medrol (Felton)] 4 mg tablets,dose pack See Rx Instructions .Route .COMPLEX 6 Days Qty: 21 0RF Rx Instructions: taper pack; clonidine HCl 0.2 mg tablet 0.2 mg PO HS loratadine 10 mg tablet 10 mg PO DAILY Referrals Follow up/Referrals: Aureliano Chua MD [Primary Care Provider] - See instructions Activity Restrictions/Add. Instructions Additional Instructions/Restrictions: Please follow up with your primary care physician in 1-2 days for further management. Please continue to take your albuterol inhaler 4 puffs every 6 hours for the next 2 days and then use as needed. Please also take the omeprazole as prescribed to help w/ acid reflux. May also use mylanta and maalox for acute flares. Clinical Impressions Clinical Impression: Chest pain due to GERD, Nonspecific chest pain Instructions Patient Instructions: DI for Gastroesophageal Reflux Disease (GERD), DI for Atypical Chest Pain Print Language Print Language: Kiswahili Discharge ED Provider: Lupe Rosen [facility] General Chief complaint: PAIN Stated complaint: Lung pain Time Seen by Provider: 03/15/22 12:17 History of Present Illness Provider Complaint: Patient states that for the last couple of night she has been woke up with pain in her chest like someone is sitting on her squeezing her that has come and gone States that she has been on antibiotics for bronchitis but that is much better now but worried about the chest pain she has been having Related Data Home Medications Medication Instructions Recorded Confirmed clonidine HCl 0.2 mg tablet 0.2 mg PO HS sleep 03/15/22 03/15/22 loratadine 10 mg tablet 10 mg PO DAILY allergies 03/15/22 03/15/22 Previous Rx's Medication Instructions Recorded buspirone 5 mg tablet See Rx Instructions .Route 12/01/21 .COMPLEX #60 tabs fluticasone propionate 50 1 spray intranasal DAILY #16 grams 12/09/21 mcg/actuation nasal spray,suspension (Flonase Allergy Relief) nicotine 14 mg/24 hr daily 1 patch transdermal DAILY #28 ea 12/23/21 transdermal patch dextroamphetamine-amphetamine ER 25 mg PO DAILY ADHD #30 ea 02/05/22 25 mg capsule,3 bead,ext release 24hr (Mydayis) albuterol sulfate 90 mcg/actuation 2 inh inhalation QID PRN shortness 02/18/22 aerosol inhaler of breath or wheezing 90 days #8.5 grams nicotine 7 mg/24 hr daily 1 patch transdermal Q24H #28 ea 02/18/22 transdermal patch umeclidinium 62.5 mcg-vilanterol 1 inh inhalation DAILY 90 days 02/18/22 25 mcg/actuation powdr for #180 ea inhalation
--- NOTE | 2022-03-15 12:24 | PC.NURSE ---
PATIENT SENT TO ER PER Keiko ROMERO APRN FOR FURTHER EVALUATION. REPORT GIVEN TO Avril RACHEL RN BY Keiko ROMERO APRN
--- NOTE | 2022-03-15 12:30 | ECG_ITS ---
APPROVED REPORT Exam: Resting ECG HR:74 bpm ECG Measurements Heart Rate 74 AXES AZ 91 P 66 QRSd 76 QRS 72 QT 351 T 30 QTc 379 Conclusion SINUS RHYTHM WITH SHORT AZ INTERVAL POSSIBLE RIGHT VENTRICULAR CONDUCTION DELAY [RSR (QR) IN V1/V2] MODERATE ST DEPRESSION [0.05+ mV ST DEPRESSION] ABNORMAL ECG UNCONFIRMED REPORT Electronically signed by : Oniel Clark MD 03/15/2022 19:57:48
--- NOTE | 2022-03-15 12:36 | PC.NURSE ---
ADRIA CHERRY at
--- NOTE | 2022-03-15 12:37 | XR_ITS ---
FINAL REPORT CLINICAL HISTORY: chest pain COMPARISON: 09/02/2021 FINDINGS: A single portable view of the chest was obtained. The heart size and pulmonary vascularity are within normal limits. The mediastinum is within normal limits. No acute pulmonary abnormality is identified. There is a small hiatal hernia. The bony thorax is intact. IMPRESSION: No active cardiopulmonary disease. Small hiatal hernia. Reviewed, Interpreted and Dictated by Tono Burnham III, MD Transcribed by Tamara Oneil Authenticated and [facility]
--- NOTE | 2022-03-15 13:27 | PC.NURSE ---
Labs delayed due to being a hard stick. Labs also hemolyzed per Maria Esther and we are waiting for lab to come stick her.
--- NOTE | 2022-03-15 14:12 | PC.NURSE ---
offered warm blanket, pt declined, call light with reach.
[2022-03-15 14:20] LABS: Basophils % 0.4 % (0.1-2.0); Eosinophils # 0.1 K/mm3 (0.0-0.4); Eosinophils % 0.8 % (0.1-12.0); Hematocrit 43.4 % (37.0-47.0); Hemoglobin 13.9 g/dL (12.2-16.2); Lymphocytes # 2.6 K/mm3 (0.7-4.5); Lymphocytes % 21.2 % (10-50); Mean Corpuscular HGB Conc 31.9 g/dL (31.8-35.4); Mean Corpuscular Hemoglobin 30.7 pg (27.0-31.2); Mean Corpuscular Volume 96.2 fl (81-99); Mean Platelet Volume 7.2 fl (7.4-10.4); Monocytes # 0.6 K/mm3 (0.1-1.0); Monocytes % 4.6 % (1.7-9.3); Platelet Count 509 K/mm3 (142-424); Red Blood Count 4.51 M/mm3 (4.20-5.40); Red Cell Distribution Width 12.8 % (11.5-17.5); White Blood Count 12.3 K/mm3 (4.8-10.8)
[2022-03-15 14:26] LABS: Chloride 105 mmol/L (98-107); Potassium 3.8 mmoL/L (3.5-5.1); Sodium 138 mmol/L (136-145)
[2022-03-15 14:28] LABS: Alanine Aminotransferase 21 U/L (12-78); Aspartate Amino Transferase 34 U/L (14-36); Blood Urea Nitrogen 8 mg/dl (7-17); Creatinine Clearance Estimated 100 mL/min (50-200); Estimated Glomerular Filt Rate 153 ml/min (>60); GFR (African American) 185 ML/MIN (>60)
[2022-03-15 14:29] LABS: Albumin Level 4.5 g/dl (3.5-5.0); Albumin/Globulin Ratio 1.6 (1.1-1.8); Alkaline Phosphatase 68 U/L (38-126); Anion Gap 8.8 mEq/L (5-15); Bilirubin,Total 0.4 mg/dl (0.2-1.3); Calcium 9.4 mg/dl (8.4-10.2); Carbon Dioxide 28 mmol/L (22.0-30.0); Globulin 2.8 g/dL (1.3-3.2); Glucose 90 mg/dl (74-100); Total Protein,Serum 7.3 g/dl (6.3-8.2)
[2022-03-15 14:42] LABS: Troponin I < 0.01 ng/ml (0.00-0.034)
--- NOTE | 2022-03-15 14:50 | HMH.EDGENADL ---
Discharge Plan Disposition Patient Disposition: Still a Patient Condition: Good Prescriptions Prescriptions: New omeprazole 20 mg capsule,delayed release(DR/EC) 20 mg PO DAILY 84 Days Qty: 84 0RF No Action Anoro Ellipta 62.5-25 mcg/actuation blister with device 1 inh IH DAILY 90 Days Qty: 180 3RF albuterol sulfate 90 mcg/actuation HFA aerosol inhaler 2 inh IH QID PRN (Reason: shortness of breath or wheezing) 90 Days Qty: 8.5 2RF nicotine 7 mg/24 hr patch 24 hour 1 patch transdermal Q24H Qty: 28 1RF nicotine 14 mg/24 hr patch 24 hour 1 patch TD DAILY Qty: 28 2RF fluticasone propionate [Flonase Allergy Relief] 50 mcg/actuation spray,suspension 1 spray intranasal DAILY Qty: 16 2RF Rx Instructions: administer into each nostril buspirone 5 mg tablet See Rx Instructions .ROUTE .COMPLEX Qty: 60 5RF Dose Instruction: TAKE ONE TABLET BY MOUTH TWICE DAILY Rx Instructions: TAKE ONE TABLET BY MOUTH TWICE DAILY Mydayis 25 mg capsule, ER triphasic 24 hr 25 mg PO DAILY Qty: 30 0RF Rx Instructions: per gaieny benzonatate 100 mg capsule 100 mg PO TID PRN (Reason: cough) Qty: 20 0RF azithromycin [Zithromax Z-Felton] 250 mg tablet See Rx Instructions .ROUTE .COMPLEX 5 Days Qty: 6 0RF Rx Instructions: For 250 mg dose pack: take 500 mg today (day 1), then 250 mg for 4 days (days 2-5) methylprednisolone [Medrol (Felton)] 4 mg tablets,dose pack See Rx Instructions .Route .COMPLEX 6 Days Qty: 21 0RF Rx Instructions: taper pack; clonidine HCl 0.2 mg tablet 0.2 mg PO HS loratadine 10 mg tablet 10 mg PO DAILY Referrals Follow up/Referrals: Aureliano Chua MD [Primary Care Provider] - See instructions Activity Restrictions/Add. Instructions Additional Instructions/Restrictions: Please follow up with your primary care physician in 1-2 days for further management. Please continue to take your albuterol inhaler 4 puffs every 6 hours for the next 2 days and then use as needed. Please also take the omeprazole as prescribed to help w/ acid reflux. May also use mylanta and maalox for acute flares. Clinical Impressions Clinical Impression: Chest pain due to GERD, Nonspecific chest pain Instructions Patient Instructions: DI for Gastroesophageal Reflux Disease (GERD), DI for Atypical Chest Pain Print Language Print Language: Urdu Discharge ED Provider: Lupe Rosen Adult HPI General Chief complaint: PAIN Stated complaint: Lung pain Time Seen by Provider: 03/15/22 12:17 Mode of Arrival: Ambulatory Source of Information: Patient Limitations: No Limitations Description of Symptoms (Recalled from ER Triage Doc. by RN): Pt reports chest pain on R side of chest that has woke her up 2 nights in a row, reports pain lasted approx 5 minutes and then went away. Pt report currently being treated for bronchitis. Pt reports no pain at this time. History of Present Illness HPI narrative: Lam is a 22-year-old female past medical history for COPD, hiatal hernia with GERD, tobacco abuse recently quit presenting to the emergency department for chest pain. Patient has chronic chest pain over the last few years. Current symptoms are similar. Patient describes right-sided chest pain that she describes as tightness in her chest, non radiating. Patient reports the symptoms wake her up 2 nights in a row. Symptoms typically last for a few minutes and self resolved. Patient also reports she was recently diagnosed with bronchitis however symptoms completely resolved from that. She denies any fevers, cough or other infectious-like symptoms. No recent trauma to the chest. Reports symptoms are not exacerbated or alleviated by food intake however worsen when she lays down. complaint: chest pain Related Data Home Medications Medication Instructions Recorded Confirmed clonidine HCl 0.2 mg tablet 0.2 mg PO HS sleep 03/15/22 03/15/22 sandra
[2022-03-15 15:22] LABS: HCG Qualitative, Serum Negative (Negative)
--- NOTE | 2022-03-15 17:11 | PC.WOUNDNOTE ---
Pt is calling for a ride at this time
== END 2022-03-15 17:40 | disposition still patient (30) ==
LOC: UTC 12:23 → ER 12:25
PROVIDERS: Emergency Provider Student in an Organized Health Care Education/Training Program; PCP Emergency Medicine
DX: K21.9 Gastro-esophageal reflux disease without esophagitis (principal); R07.89 Other chest pain; Z79.899 Other long term (current) drug therapy; J44.9 Chronic obstructive pulmonary disease, unspecified; Z72.0 Tobacco use; F90.9 Attention-deficit hyperactivity disorder, unspecified type
CPT/HCPCS: 36415; 71045; 80053; 84484; 84703; 85025; 93005; 94640; 99283

== ENCOUNTER 2022-05-19 17:44 | Emergency (ER) | payer MEDICAID, SELFPAY ==
[2022-05-19 18:38] VITALS: BP 102/70; PULSE 91; RESP 18; TEMP 37.1; O2SAT 100; BMI 15.3
--- NOTE | 2022-05-19 19:09 | EXP.UTC ---
Discharge Plan Disposition Patient Disposition: Home, Self-Care Condition: Good Prescriptions Prescriptions: New azithromycin [Zithromax Z-Felton] 250 mg tablet See Rx Instructions .ROUTE .COMPLEX 5 Days Qty: 6 0RF Rx Instructions: For 250 mg dose pack: take 500 mg today (day 1), then 250 mg for 4 days (days 2-5) methylprednisolone [Medrol (Felton)] 4 mg tablets,dose pack See Rx Instructions .Route .COMPLEX 6 Days Qty: 21 0RF Rx Instructions: taper pack; benzonatate 100 mg capsule 100 mg PO TID PRN (Reason: cough) Qty: 15 0RF No Action Anoro Ellipta 62.5-25 mcg/actuation blister with device 1 inh IH DAILY 90 Days Qty: 180 3RF albuterol sulfate 90 mcg/actuation HFA aerosol inhaler 2 inh IH QID PRN (Reason: shortness of breath or wheezing) 90 Days Qty: 8.5 2RF nicotine 7 mg/24 hr patch 24 hour 1 patch transdermal Q24H Qty: 28 1RF nicotine 14 mg/24 hr patch 24 hour 1 patch TD DAILY Qty: 28 2RF fluticasone propionate [Flonase Allergy Relief] 50 mcg/actuation spray,suspension 1 spray intranasal DAILY Qty: 16 2RF Rx Instructions: administer into each nostril buspirone 5 mg tablet See Rx Instructions .ROUTE .COMPLEX Qty: 60 5RF Dose Instruction: TAKE ONE TABLET BY MOUTH TWICE DAILY Rx Instructions: TAKE ONE TABLET BY MOUTH TWICE DAILY clonidine HCl 0.2 mg tablet See Rx Instructions .ROUTE .COMPLEX Qty: 30 5RF Dose Instruction: TAKE ONE TABLET BY MOUTH EVERY DAY AT BEDTIME Rx Instructions: TAKE ONE TABLET BY MOUTH EVERY DAY AT BEDTIME Mydayis 25 mg capsule, ER triphasic 24 hr 25 mg PO DAILY Qty: 30 0RF Rx Instructions: per gaieny albuterol sulfate 0.63 mg/3 mL solution for nebulization 0.63 mg inhalation QID PRN (Reason: shortness of breath or wheezing) Qty: 270 3RF loratadine 10 mg tablet 10 mg PO DAILY omeprazole 20 mg capsule,delayed release(DR/EC) 20 mg PO DAILY 84 Days Qty: 84 0RF Referrals Follow up/Referrals: Aureliano Chua MD [Primary Care Provider] - See instructions Activity Restrictions/Add. Instructions Additional Instructions/Restrictions: Start antibiotic today. Be sure to complete entire prescription even if feeling better Monitor temp. Tylenol every 4 hours as needed and / or ibuprofen every 6 hours as needed ( As long as your primary care physician has told you that it ok to take both. For fever/aches/pains ER if no less than 101 despite Tylenol or Motrin Humidifier/vaporizer or hot steamy shower Inhaler every 4-6 hours as needed like we discussed. If unsure how to use it, ask pharmacist to demonstrate how. Should help open airways and improve cough, wheezing, and shortness of breath Mucinex during the day for your cough and cough suppressant only at night. Be sure to drink lots of water. *Tessalon Perles will not cause drowsiness but use at bedtime to help stop cough so that you may get some rest. *Start steroid today. Helps with inflammation therefore, cough and wheezing. Follow directions on the package. Reviewed side effects. Patient reports taking them before. Follow up IMMEDIATELY for new or worsening of symptoms OR no noticeable improvement over the next 48-72 hours. 911 immediately for any life threatening symptoms such as chest pain or difficulty breathing Clinical Impressions Clinical Impression: Sinusitis, Bronchitis Instructions Patient Instructions: DI for Sinusitis, Sinusitis, Acute Bronchitis Discharge ED Provider: Jolanta Jones [facility] [place] HPI General Stated complaint: cough congestion Source of Information: Patient Limitations: No Limitations Time Seen by Provider: 05/19/22 19:09 Description of Symptoms (Recalled from Triage Doc. by RN): cough and congestion since Tuesday HEENT Symptoms (Recalled from RN notes): No Resp Symptoms (Recalled from RN notes): Yes Skin Symptoms (Recalled from RN notes): No
[2022-05-19 19:26] VITALS: BP 148/81; PULSE 88; RESP 18; TEMP 37.1; O2SAT 100
== END 2022-05-19 19:33 | disposition home or self-care (01) ==
PROVIDERS: Emergency Provider Nurse Practitioner; PCP Emergency Medicine
DX: J32.9 Chronic sinusitis, unspecified (principal); J40 Bronchitis, not specified as acute or chronic
CPT/HCPCS: 99212; 99214; G0463

== ENCOUNTER → 2022-08-06 13:22 | Outpatient (CLI) | payer MEDICAID, SELFPAY | PROVIDERS: PCP Physician Assistant; Visit Provider Physician Assistant | DX: R51.9 Headache, unspecified (principal); J02.9 Acute pharyngitis, unspecified ==

== ENCOUNTER 2022-08-06 13:48 | Outpatient (CLI) | payer MEDICAID, SELFPAY ==
[2022-08-06 13:49] VITALS: BMI 15.0
[2022-08-06 14:15] LABS: Basophils % 0.4 % (0.1-2.0); Eosinophils # 0.1 K/mm3 (0.0-0.4); Eosinophils % 0.6 % (0.1-12.0); Hematocrit 43.4 % (37.0-47.0); Hemoglobin 13.7 g/dL (12.2-16.2); Mean Corpuscular HGB Conc 31.5 g/dL (31.8-35.4); Mean Corpuscular Hemoglobin 28.9 pg (27.0-31.2); Mean Corpuscular Volume 91.7 fl (81-99); Mean Platelet Volume 7.7 fl (7.4-10.4); Monocytes # 0.6 K/mm3 (0.1-1.0); Monocytes % 6.6 % (1.7-9.3); Neutrophils # 6.7 K/mm3 (1.8-7.8); Neutrophils % 80.4 % (37.0-80.0); Platelet Count 266 K/mm3 (142-424); Red Blood Count 4.73 M/mm3 (4.20-5.40); Red Cell Distribution Width 14.9 % (11.5-17.5); White Blood Count 8.4 K/mm3 (4.8-10.8)
[2022-08-06 14:20] LABS: Sodium 137 mmol/L (136-145)
[2022-08-06 14:21] LABS: Chloride 100 mmol/L (98-107); Potassium 3.4 mmoL/L (3.5-5.1)
[2022-08-06 14:22] LABS: Strep Scrn Group A (Rapid) Negative (Negative)
[2022-08-06 14:23] LABS: Alanine Aminotransferase 17 U/L (12-78); Albumin Level 4.5 g/dl (3.5-5.0); Albumin/Globulin Ratio 1.5 (1.1-1.8); Alkaline Phosphatase 80 U/L (38-126); Anion Gap 13.4 mEq/L (5-15); Aspartate Amino Transferase 28 U/L (14-36); Bilirubin,Total 0.4 mg/dl (0.2-1.3); Blood Urea Nitrogen 10 mg/dl (7-17); Carbon Dioxide 27 mmol/L (22.0-30.0); Creatinine Clearance Estimated 84 mL/min (50-200); Estimated Glomerular Filt Rate 124 ml/min (>60); GFR (African American) 150 ML/MIN (>60); Globulin 3.1 g/dL (1.3-3.2); Total Protein,Serum 7.6 g/dl (6.3-8.2)
[2022-08-06 14:24] LABS: Calcium 8.8 mg/dl (8.4-10.2); Glucose 111 mg/dl (74-100)
--- NOTE | 2022-08-06 15:07 | PC.NURSE ---
PT CAME TO INFUSION FROM THE OFFICE OF [facility] FOR DEHYDRATION AND GASTROENTERITIS. UPON ARRIVAL PT WAS UNABLE TO VERIFY HER NAME OR BIRTHDAY WHEN ASKED. PT STARED BLANKLY WHEN ASKED QUESTIONS. WAS ABLE TO DRAW BLOOD FOR LABS AND CARLITOS FROM LAB CAME AND PERFORMED SWAB FOR STREP SCREEN. UPON FURTHER CONVERSATION WITH PT'S FRIEND, SHE STATED THAT PT IS NOT NORMALLY LIKE THIS. STATED THAT SHE IS NORMALLY ALERT AND ORIENTED AND ABLE TO RESPOND APPROPRIATELY TO QUESTIONS. MADE CALL TO [facility] TO NOTIFY OF MENTAL STATUS. SHE REPORTED THAT PT WAS NOT BEHAVING THIS WAY IN HER OFFICE AND INSTRUCTED TO SEND PT TO ED. REPORT CALLED TO AFSHIN WASHBURN IN THE ED AT 1405. PT TAKEN BY WHEELCHAIR TO ED FOR FURTHER EVALUATIONAT 1410.
== END 2022-08-06 14:10 | disposition home or self-care (01) ==
LOC: INF 13:49
PROVIDERS: PCP Physician Assistant; Visit Provider Physician Assistant
DX: E86.0 Dehydration (principal); K52.0 Gastroenteritis and colitis due to radiation
CPT/HCPCS: 36415; 80053; 85025; 87430

== ENCOUNTER 2022-08-06 14:10 | Observation (INO) | payer MEDICAID, SELFPAY ==
[2022-08-06] VITALS (14 sets, daily range): BP systolic 118–151; BP diastolic 66–131; PULSE 89–130; RESP 15–22; TEMP 37.2–38.6; O2SAT 96–100; BMI 16.5; BMI 14.6
--- NOTE | 2022-08-06 14:42 | PC.NURSE ---
DR PAYTON AT BEDSIDE
[2022-08-06 14:47] LABS: Coronavirus 19, PCR Not Detected (NotDetected); Influenza A, PCR Not Detected (NotDetected); Influenza B, PCR Not Detected (NotDetected)
--- NOTE | 2022-08-06 15:02 | EXP.PHA.CONS ---
Pharmacy Consult Date: 08/06/22 Time: 15:02 Referring provider: DR. PAYTON Reason for Consult:: VANCOMYCIN DOSING Allergies Allergy/AdvReac Type Severity Reaction Status Date / Time No Known Allergies Allergy Verified 08/06/22 13:10 Home Medications Medication Instructions Recorded Confirmed Type albuterol sulfate 90 mcg/actuation 2 inh inhalation QID PRN shortness 02/18/22 08/06/22 Rx aerosol inhaler of breath or wheezing 90 days #8.5 grams umeclidinium 62.5 mcg-vilanterol 1 inh inhalation DAILY 90 days 02/18/22 08/06/22 Rx 25 mcg/actuation powdr for #180 ea inhalation (Anoro Ellipta) loratadine 10 mg tablet 10 mg PO DAILY allergies 03/15/22 08/06/22 History clonidine HCl 0.2 mg tablet See Rx Instructions .Route 03/31/22 08/06/22 Rx .COMPLEX #30 tabs albuterol sulfate 0.63 mg/3 mL 0.63 mg (3 mL) inhalation QID PRN 05/19/22 08/06/22 Rx solution for nebulization shortness of breath or wheezing #270 mL fluticasone propionate 50 See Rx Instructions .Route 05/28/22 08/06/22 Rx mcg/actuation nasal .COMPLEX #16 grams spray,suspension buspirone 5 mg tablet See Rx Instructions .Route 05/31/22 08/06/22 Rx .COMPLEX #60 tabs omeprazole 20 mg capsule,delayed 20 mg PO DAILY acid reflux 90 days 06/10/22 08/06/22 Rx release #90 caps nicotine 7 mg/24 hr daily 1 patch transdermal Q24H #28 ea 06/28/22 08/06/22 Rx transdermal patch dextroamphetamine-amphetamine ER 25 mg PO DAILY ADHD #30 ea 07/28/22 08/06/22 Rx 25 mg capsule,3 bead,ext release 24hr (Mydayis) New Prescriptions to Start Prescriptions: Height: 1.5 m Weight: 37.195 kg Laboratory Results:: SRCR 0.6 MG/DL Medical History: Medical History (Updated 05/19/22 @ 19:26 by Jolanta Jones APRN) Attention Deficit Hyperactivity Disorder (ADHD) COPD (chronic obstructive pulmonary disease) Dyspnea on exertion History of gastrostomy tube placement Restrictive lung disease Tobacco abuse counseling Tobacco abuse disorder Assessment and Plan Assessment and plan all Dx Assessment and Plan for all problems:: Pharmacokinetic dosing service Objective: Patient: Floor: Age: 22 yo Serum creatinine: 0.6 mg/dL Height: 59.1 Inches Weight (kg): 37.2 Assessment: IBW (kg): 44.82 Dosing wt(kg): 37.2 Estimated Creatinine clearance (ml/min): 85.6 CRCL method: Cockcroft and Gault using ibw(default). Drug selected: Vancomycin Loading dose (mg): 0 Vd (liters): 33.5 (factor used: 0.9 L/kg) Sam (hr-1): 0.075 Half life (hrs): 9.24 Recommended dose: 750 mg Interval: 12 hrs Infusion time (hrs): 2.0 Predicted peak (mcg/mL): 35.0 Predicted trough (mcg/mL): 16.53 Total body weight is being used for vancomycin dosing. Recommendations: Give Vancomycin 750 mg q 12 hrs with an expected Cpeak of 35.0 mcg/ml and an expected Ctrough of 16.53 mcg/ml ----Vanco only - ignore for aminoglycosides----- CLvanco= 2.51 L/hr AUC 0-24 /ALEYDA Data: ALEYDA 0.5 mcg/mL: AUC/ALEYDA: 1195.2 ALEYDA 1.0 mcg/mL: AUC/ALEYDA: 597.6 --------- ALEYDA 1.5 mcg/mL: AUC/ALEYDA: 398.4 ALEYDA 2.0 mcg/mL: AUC/ALEYDA: 298.8
[2022-08-06 15:05] LABS: Basophils % 0.6 % (0.1-2.0); Eosinophils % 0.5 % (0.1-12.0); Hemoglobin 13.5 g/dL (12.2-16.2); Lymphocytes # 0.9 K/mm3 (0.7-4.5); Lymphocytes % 11.4 % (10-50); Mean Corpuscular HGB Conc 32.2 g/dL (31.8-35.4); Mean Corpuscular Hemoglobin 28.8 pg (27.0-31.2); Mean Corpuscular Volume 89.7 fl (81-99); Monocytes # 0.5 K/mm3 (0.1-1.0); Monocytes % 6.8 % (1.7-9.3); Neutrophils # 6.2 K/mm3 (1.8-7.8); Neutrophils % 80.8 % (37.0-80.0); Platelet Count 269 K/mm3 (142-424); Red Blood Count 4.69 M/mm3 (4.20-5.40); White Blood Count 7.7 K/mm3 (4.8-10.8)
[2022-08-06 15:07] LABS: Chloride 101 mmol/L (98-107); Potassium 3.8 mmoL/L (3.5-5.1); Sodium 137 mmol/L (136-145)
[2022-08-06 15:10] LABS: Alanine Aminotransferase 16 U/L (12-78); Albumin Level 4.4 g/dl (3.5-5.0); Albumin/Globulin Ratio 1.5 (1.1-1.8); Alkaline Phosphatase 72 U/L (38-126); Anion Gap 10.8 mEq/L (5-15); Aspartate Amino Transferase 29 U/L (14-36); Bilirubin,Total 0.4 mg/dl (0.2-1.3); Blood Urea Nitrogen 10 mg/dl (7-17); Carbon Dioxide 29 mmol/L (22.0-30.0); Creatinine Clearance Estimated 103 mL/min (50-200); Estimated Glomerular Filt Rate 153 ml/min (>60); GFR (African American) 185 ML/MIN (>60); Total Protein,Serum 7.4 g/dl (6.3-8.2)
[2022-08-06 15:11] LABS: Activated Partial Thrombo Time 29.3 seconds (22.8-30.6); Calcium 8.6 mg/dl (8.4-10.2); Glucose 113 mg/dl (74-100); INR 1.04 (0.9-1.1); Prothrombin Time 11.2 seconds (10.1-12.5)
--- NOTE | 2022-08-06 15:12 | CT_ITS ---
FINAL REPORT CLINICAL HISTORY: AMS FINDINGS: Axial images of the head were obtained without contrast. Coronal reformatted images were also obtained.This study was performed with techniques to keep radiation doses as low as reasonably achievable (ALARA). Individualized dose reduction techniques using automated exposure control or adjustment of mA and/or kV according to the patient''s size were employed. There is no evidence of intracranial hemorrhage or mass. The ventricular size is within normal limits. There is no evidence of shift of the midline structures. No abnormal extra axial fluid collection is identified. No skull abnormality is seen on the bone window images. IMPRESSION: No acute intracranial abnormality. Reviewed, Interpreted and Dictated by Tono Burnham III, MD Transcribed by Cindi Dolan Authenticated and [facility]
--- NOTE | 2022-08-06 15:12 | PC.NURSE ---
ANESTHESIA AT BEDSIDE TO DISCUSS LUMBAR PUNCTURE
--- NOTE | 2022-08-06 15:14 | HMH.EDGENADL ---
Discharge Plan Disposition Patient Disposition: Admitted As Inpatient Condition: Fair Chief Complaint: Weakness Prescriptions Prescriptions: No Action Anoro Ellipta 62.5-25 mcg/actuation blister with device 1 inh IH DAILY 90 Days Qty: 180 3RF albuterol sulfate 90 mcg/actuation HFA aerosol inhaler 2 inh IH QID PRN (Reason: shortness of breath or wheezing) 90 Days Qty: 8.5 2RF clonidine HCl 0.2 mg tablet See Rx Instructions .ROUTE .COMPLEX Qty: 30 5RF Dose Instruction: TAKE ONE TABLET BY MOUTH EVERY DAY AT BEDTIME Rx Instructions: TAKE ONE TABLET BY MOUTH EVERY DAY AT BEDTIME albuterol sulfate 0.63 mg/3 mL solution for nebulization 0.63 mg inhalation QID PRN (Reason: shortness of breath or wheezing) Qty: 270 3RF fluticasone propionate 50 mcg/actuation spray,suspension See Rx Instructions .ROUTE .COMPLEX Qty: 16 2RF Dose Instruction: instill 1 SPRAY IN EACH NOSTRIL EVERY DAY Rx Instructions: instill 1 SPRAY IN EACH NOSTRIL EVERY DAY buspirone 5 mg tablet See Rx Instructions .ROUTE .COMPLEX Qty: 60 5RF Dose Instruction: TAKE ONE TABLET BY MOUTH TWICE DAILY Rx Instructions: TAKE ONE TABLET BY MOUTH TWICE DAILY omeprazole 20 mg capsule,delayed release(DR/EC) 20 mg PO DAILY 90 Days Qty: 90 0RF nicotine 7 mg/24 hr patch 24 hour 1 patch transdermal Q24H Qty: 28 1RF Mydayis 25 mg capsule, ER triphasic 24 hr 25 mg PO DAILY Qty: 30 0RF loratadine 10 mg tablet 10 mg PO DAILY Referrals Follow up/Referrals: Jesse Clarke APRN [Primary Care Provider] - See instructions Clinical Impressions Clinical Impression: Encephalopathy Discharge ED Provider: Ryan Carpio General Adult HPI General Chief complaint: Weakness Stated complaint: possible dehydration, ams Time Seen by Provider: 08/06/22 14:30 Mode of Arrival: Wheelchair Source of Information: Patient Limitations: No Limitations Description of Symptoms (Recalled from ER Triage Doc. by RN): 22 F presents from infusion center after being sent there from her PCP's office for IV hydration. Patient is weak, just doesn't feel good, and has a cough. Patient has significant history of cardiac and respiratory issues, poor health overall. History of Present Illness HPI narrative: Patient is a 22-year-old female with past medical history of ADHD, COPD not on home oxygen, history of developmental delay intermittently requiring care who presents to the emergency department for evaluation of encephalopathy. History is obtained by patient and intermittently and glove pairer at bedside. Patient's baseline she is able to complete her activities of daily living, conversation is slow to speech however is fluent in conversation, ambulates freely, is alert and oriented. Patient has had decreased p.o. intake secondary to sore throat and generally not feeling good for the last 72 hours. Patient has had decreased p.o. intake and urine output, she presented to PCPs office today for evaluation of vomiting, diarrhea, sore throat. Patient was sent to infusion clinic for volume resuscitation where due to progressive encephalopathy she was transferred here for continued evaluation. Independent history obtained by grandmother states that she was at her baseline prior to going to appointment. Upon questioning patient she is intermittently on oriented, does not know who is in the room, intermittently does not know where she is at. She did complain of a headache yesterday that has since resolved, she has sore throat. Related Data Home Medications Medication Instructions Recorded Confirmed loratadine 10 mg tablet 10 mg PO DAILY allergies 03/15/22 08/06/22 Previous Rx's Medication Instructions Recorded albuterol sulfate 90 mcg/actuation 2 inh inhalation QID PRN shortness 02/18/22 aerosol inhaler of breath or wheezing 90 days #8.5 grams umeclidinium 62.5 mcg-vilanterol 1 inh inhalation DAILY 90 days
[2022-08-06 15:23] LABS: Coronovirus HKU1,PCR Not Detected (NotDetected)
[2022-08-06 15:23] LABS: HCG Qualitative, Serum Negative (Negative)
[2022-08-06 15:25] LABS: Bordetella Pertussis Not Detected (NotDetected); Chlamydophila Pneumoniae, PCR Not Detected (NotDetected); Coronavirus 19, PCR Not Detected (NotDetected); Coronavirus 229E Not Detected (NotDetected); Coronavirus NL63 Not Detected (NotDetected); Coronavirus OC43 Not Detected (NotDetected); Human Metapneumovirus Not Detected (NotDetected); Influenza A, PCR Not Detected (NotDetected); Influenza AH1, 2009 Not Detected (NotDetected); Influenza AH1, PCR Not Detected (NotDetected); Influenza AH3,PCR Not Detected (NotDetected); Influenza B, PCR Not Detected (NotDetected); Mycoplasma Pneumoniae, PCR Not Detected (NotDetected); Parainfluenza 1, PCR Not Detected (NotDetected); Parainfluenza 2, PCR Not Detected (NotDetected); Parainfluenza 3, PCR Not Detected (NotDetected); Parainfluenza 4, PCR Not Detected (NotDetected); Respiratory Syncytial Virus Not Detected (NotDetected)
--- NOTE | 2022-08-06 15:25 | PC.NURSE ---
RADIOLOGY AT BEDSIDE TO TAKE PT FOR CT SCAN
--- NOTE | 2022-08-06 15:25 | PC.NURSE ---
pt to ct
[2022-08-06 15:28] LABS: C-Reactive Protein 50.3 mg/L (0-4)
[2022-08-06 15:30] LABS: Troponin I < 0.01 ng/ml (0.00-0.034)
[2022-08-06 15:33] LABS: Lactic Acid 0.9 mmol/L (0.7-2.1)
--- NOTE | 2022-08-06 15:44 | XR_ITS ---
FINAL REPORT CLINICAL HISTORY: cough COMPARISON: September 02, 2021 FINDINGS: A single portable view of the chest was obtained. The heart size and pulmonary vascularity are within normal limits. The mediastinum is normal. There is mild bronchial wall thickening worrisome for bronchitis. No focal pulmonary abnormality is seen. The bony thorax is intact. IMPRESSION: Mild bronchial wall thickening worrisome for bronchitis. Authenticated and ERN
[2022-08-06 15:46] LABS: Procalcitonin 1.29 ng/mL (0.0-2.0)
[2022-08-06 15:49] LABS: T4 (Thyroxine) 7.9 ug/dl (5.53-11.0)
[2022-08-06 16:03] LABS: Thyroid Stimulating Hormone 5.44 uIU/mL (0.465-4.68)
--- NOTE | 2022-08-06 16:20 | PC.NURSE ---
DR PAYTON SPEAKING WITH DR. MERAZ FOR ADMISSION
--- NOTE | 2022-08-06 16:23 | PC.NURSE ---
XR AT BEDSIDE
[2022-08-06 16:26] LABS: Microscopic, Urine URINE MICROSCOPIC (MICROSCOPIC)
--- NOTE | 2022-08-06 16:26 | PC.NURSE ---
1542 TIME OUT BEFORE LUMBAR PUNCTURE 1543 SITE PREP 1545 LOCAL ANESTHETIC 1547 ATTEMPT AT LP 1548 UNSUCCESSFUL 1549 ATTEMPT X 2, UNSUCCESSFUL PER ANESTHESIA. ED MD AND ANESTHESIA STOP
[2022-08-06 16:31] LABS: Appearance,Urine CLEAR (Clear); Bilirubin,Urine Negative (Negative); Blood, Urine 3+ (Negative); Color,Urine YELLOW (Yellow); Glucose,Urine (UA) Negative (Negative); Ketones,Urine TRACE (Negative); Leukocyte Esterase,Urine Negative (Negative); Nitrate,Urine Negative (Negative); Protein,Urine Negative (Negative); Specific Gravity, Urine >= 1.030 (1.005-1.030)
[2022-08-06 16:44] LABS: Benzodiazepines Screen,Urine Negative ng/ml (<200)
[2022-08-06 16:45] LABS: Amphetamine/Metha Screen,Urine Positive ng/ml (<1000); Barbiturates Screen,Urine Negative ng/ml (<200)
[2022-08-06 16:46] LABS: Cannabinoid Screen,Urine Negative ng/ml (<50)
[2022-08-06 16:47] LABS: Cocaine Screen,Urine Negative ng/ml (<300); Methadone Screen,Urine Negative ng/ml (<300)
[2022-08-06 16:47] LABS: Bacteria,Urine Trace /lpf; Squamous Epithelial Cell,Urine Occasional #/hpf (0-5)
[2022-08-06 16:48] LABS: Opiate Screen,Urine Negative ng/ml (<300); Phencyclidine Screen,Urine Negative ng/ml (<25)
--- NOTE | 2022-08-06 16:54 | PC.NURSE ---
DR MERAZ AT BEDSIDE FOR ASSESSMENT
--- NOTE | 2022-08-06 16:54 | PC.NURSE ---
Dr. Lowe, Hospitalist at for eval per Dr. Carpio's request
[2022-08-06 17:02] LABS: VBG Base Excess -3.9 mmol/L (-2.4-2.3); VBG HCO3 21.3 mmol/L (23-30); VBG PH 7.38 mmol/L (7.31-7.41); VBG PO2 153.7 mmol/L (28-40); VBG Total CO2 22.4 mmol/L (23-27)
--- NOTE | 2022-08-06 17:03 | PC.NURSE ---
AUTO PORTER NOTIFIED OF ADMISSION
--- NOTE | 2022-08-06 17:06 | PC.NURSE ---
NUMBER FOR JOSÉ MIGUEL LYNN [phone]
[2022-08-06 17:11] LABS: Ammonia 15 umol/L (9-30); Magnesium 1.7 mg/dl (1.6-2.3)
--- NOTE | 2022-08-06 17:21 | EXP.HP ---
History of Present Illness *Admission Date: 08/06/22 *Reason for visit:: confusion, sore throat *History of present illness: Ms. Fritz is a developmentally delayed 22-year-old female with history of lung disease of prematurity and ADHD who presented to the ER today for evaluation of confusion after being seen by her primary care doctor earlier today. She presented with her caregiver who is able to assist in history. Patient has been sick for the past 36 to 72 hours. Progressive cough, sore throat, decreased p.o. intake. Will concern the most however is her decreased interaction, inability to answer questions, and jennifer confusion while being assessed at her doctor's office today. She woke up in normal health this morning. After arriving to her doctor's office, she was unable to answer questions. Was unsure where she is. Could not state her name or birthdate. At baseline she is able to complete her activities of daily living. Conversation is slow to speech however is fluent. Is oriented x3. No focal neurologic deficits at baseline. Caregiver reports poor p.o. intake and significant sore throat. Patient is very sensitive to pain and is quick to tell them when she does not feel well. Is also noted decreased urine output. Work-up extensive. Labs showing neutrophilia but normal white cell count, elevated inflammatory markers (elevated CRP), normal electrolytes. Negative rapid strep. Respiratory panel obtained was still pending at time of discharge. Given altered mental status, multiple attempts to obtain LP were performed. Patient is afebrile however. Minimal photophobia. No meningismus. Given concern for acute encephalopathy ER consulted medicine for possible admission and observation overnight. On evaluation in the ER prior to admitting, patient was able to answer some questions but could not tell me her full name, date of , Saying I do not know. Seemed very confused. Repeated answers. Has significant sore throat with erythema of tonsils. Is stable on room air with appropriate vitals. Further discussion with caregiver elicits that just before going to her primary care's office, the patient had taken some DayQuil or maybe NyQuil. She took the full adult dose of 30 mL. This is the only additional medication she has had today outside of her norms. Caregiver and family are comfortable taking patient home in her current state given the acute onset of confusion. [facility] Disclaimer: The information contained in this section may have been updated after the patient was seen, as this information can be updated by other users. Medical History Attention Deficit Hyperactivity Disorder (ADHD) COPD (chronic obstructive pulmonary disease) Dyspnea on exertion History of gastrostomy tube placement Restrictive lung disease Tobacco abuse counseling Tobacco abuse disorder Surgical History History of tracheostomy as a child Family History No significant family history Social History Smoking Status: Former smoker alcohol intake: never substance use type: denies use current occupational status: other Travel in the last 8 weeks: None household members: family housing: house Review of Systems Review of Systems Review of systems (narrative): 14 point review of systems performed, pertinent positives and negatives as per HPI Meds Home Medications and Allergies Home Medications Medication Instructions Recorded Confirmed Type albuterol sulfate 90 mcg/actuation 2 inh inhalation QID PRN shortness 02/18/22 08/06/22 Rx aerosol inhaler of breath or wheezing 90 days #8.5 grams umeclidinium 62.5 mcg-vilanterol 1 inh inhalation DAILY 90 days 02/18/22 08/06/22 Rx 25 mcg/actuation powdr for #180 ea inhalation (Anoro Ellipt
--- NOTE | 2022-08-06 17:57 | PC.NURSE ---
Wilber Young given report. CYDNEY Patel notified per Isidro Peterson pt ready to be brought up from room.
[2022-08-06 18:18] LABS: Adenovirus,PCR Detected (NotDetected); Rhinovirus/Enterovirus Detected (NotDetected)
--- NOTE | 2022-08-06 18:27 | PC.NURSE ---
arrived to floor by w/c from ED
[2022-08-06 18:50] LABS: Troponin I < 0.01 ng/ml (0.00-0.034)
--- NOTE | 2022-08-06 21:33 | HMH.EDGENADL ---
Discharge Plan Disposition Patient Disposition: Admitted As Inpatient Condition: Good Clinical Impressions Clinical Impression: Encephalopathy Discharge ED Provider: Ryan Carpio General Adult HPI General Chief complaint: Weakness Stated complaint: possible dehydration, ams Time Seen by Provider: 08/06/22 14:30 Mode of Arrival: Wheelchair Source of Information: Patient Limitations: No Limitations Description of Symptoms (Recalled from ER Triage Doc. by RN): 22 F presents from infusion center after being sent there from her PCP's office for IV hydration. Patient is weak, just doesn't feel good, and has a cough. Patient has significant history of cardiac and respiratory issues, poor health overall. Related Data Home Medications Medication Instructions Recorded Confirmed loratadine 10 mg tablet 10 mg PO DAILY allergies 03/15/22 08/19/22 Previous Rx's Medication Instructions Recorded albuterol sulfate 90 mcg/actuation 2 inh inhalation QID PRN shortness 02/18/22 aerosol inhaler of breath or wheezing 90 days #8.5 grams clonidine HCl 0.2 mg tablet See Rx Instructions .Route 03/31/22 .COMPLEX #30 tabs albuterol sulfate 0.63 mg/3 mL 0.63 mg (3 mL) inhalation QID PRN 05/19/22 solution for nebulization shortness of breath or wheezing #270 mL fluticasone propionate 50 See Rx Instructions .Route 05/28/22 mcg/actuation nasal .COMPLEX #16 grams spray,suspension omeprazole 20 mg capsule,delayed 20 mg PO DAILY acid reflux 90 days 06/10/22 release #90 caps nicotine 7 mg/24 hr daily 1 patch transdermal Q24H #28 ea 06/28/22 transdermal patch dextroamphetamine-amphetamine ER 25 mg PO DAILY ADHD #30 ea 07/28/22 25 mg capsule,3 bead,ext release 24hr (Mydayis) acetaminophen 500 mg tablet 500 mg PO Q6HP PRN Fever Or Mild 08/07/22 Pain #0 tabs ibuprofen 400 mg tablet 400 mg PO Q6HP PRN Mild Pain #0 08/07/22 tabs azelastine 137 mcg (0.1 %) nasal 2 spray intranasal BID PRN allergy 08/19/22 spray aerosol symptoms 90 days #30 mL nicotine (polacrilex) 2 mg gum 2 mg buccal Q6H PRN nicotine 08/19/22 cravings #100 ea tiotropium 2.5 mcg-olodaterol 2.5 2 puff inhalation DAILY 90 days #4 08/19/22 mcg/actuation mist for inhalation grams (Stiolto Respimat) Allergies Allergy/AdvReac Type Severity Reaction Status Date / Time No Known Allergies Allergy Verified 08/19/22 15:17 [facility] Disclaimer: The information contained in this section may have been updated after the patient was seen, as this information can be updated by other users. Medical History (Updated 08/19/22 @ 15:55 by Suman Joseph MD) Allergic rhinitis Attention Deficit Hyperactivity Disorder (ADHD) COPD (chronic obstructive pulmonary disease) Dyspnea on exertion History of gastrostomy tube placement Restrictive lung disease Tobacco abuse counseling Tobacco abuse disorder Surgical History History of tracheostomy as a child Family History Other Family history of COPD (chronic obstructive pulmonary disease) Family history of cancer Family history of hyperlipidemia Family history of hypertension Social History Smoking Status: Former smoker alcohol intake: never substance use type: denies use current occupational status: other Travel in the last 8 weeks: None household members: family housing: house ROS Obtained: Yes All systems reviewed & no additional complaints except as documented Physical Exam General General appearance: in no apparent distress and other (Encephalopathic) Respiratory Respiratory exam: Present normal lung sounds bilaterally Cardiovascular Cardiovascular exam: Present regular rate Neurological Exam Neurological exam: Present alert Medical Decision Making Bhanu Inquiry Pt receiving controlled substance: No Vital Signs: 08/06/22 14:11
[2022-08-06 22:01] LABS: Troponin I < 0.01 ng/ml (0.00-0.034)
[2022-08-07 04:00] VITALS: BP 113/63; PULSE 99; RESP 24; TEMP 37.7; O2SAT 92; BMI 14.6
--- NOTE | 2022-08-07 05:12 | PC.NURSE ---
At beginning of shift patient became nauseated and she was given dose of zofran which seemed to help. She also was havin episode of being confused. Patient to able to lay down and rest for awhile. Then woke up and sat on side of bed stating she was confused again, wanting to know hoe did she get her and was unable to tell me her name, age, . Patient stated her head was hurting an dasked if I could give her something. I jeevan her i had an order for Tylenol and she was ok with that. Patient is now resting in bed.
--- NOTE | 2022-08-07 07:36 | EXP.DC.SUM ---
General Admission date:: 08/06/22 Discharge date: 08/07/22 HPI HPI HPI: Ms. Fritz is a developmentally delayed 22-year-old female with history of lung disease of prematurity and ADHD who presented to the ER today for evaluation of confusion after being seen by her primary care doctor earlier today. She presented with her caregiver who is able to assist in history. Patient has been sick for the past 36 to 72 hours. Progressive cough, sore throat, decreased p.o. intake. Will concern the most however is her decreased interaction, inability to answer questions, and jennifer confusion while being assessed at her doctor's office today. She woke up in normal health this morning. After arriving to her doctor's office, she was unable to answer questions. Was unsure where she is. Could not state her name or birthdate. At baseline she is able to complete her activities of daily living. Conversation is slow to speech however is fluent. Is oriented x3. No focal neurologic deficits at baseline. Caregiver reports poor p.o. intake and significant sore throat. Patient is very sensitive to pain and is quick to tell them when she does not feel well. Is also noted decreased urine output. Work-up extensive. Labs showing neutrophilia but normal white cell count, elevated inflammatory markers (elevated CRP), normal electrolytes. Negative rapid strep. Respiratory panel obtained was still pending at time of discharge. Given altered mental status, multiple attempts to obtain LP were performed. Patient is afebrile however. Minimal photophobia. No meningismus. Given concern for acute encephalopathy ER consulted medicine for possible admission and observation overnight. On evaluation in the ER prior to admitting, patient was able to answer some questions but could not tell me her full name, date of , Saying I do not know. Seemed very confused. Repeated answers. Has significant sore throat with erythema of tonsils. Is stable on room air with appropriate vitals. Further discussion with caregiver elicits that just before going to her primary care's office, the patient had taken some DayQuil or maybe NyQuil. She took the full adult dose of 30 mL. This is the only additional medication she has had today outside of her norms. Caregiver and family are comfortable taking patient home in her current state given the acute onset of confusion. Hospital Course Hospital Course Hospital Course: 22-year-old female with cognitive delay, ADHD, chronic lung disease of prematurity who presents with acute cephalopathy after 2 to 3 days of URI/pharyngitis illness.? Differential diagnosis includes metabolic encephalopathy, medication induced encephalopathy, viral encephalopathy.? Patient has done well overnight. Comprehensive panel came back positive for adenovirus and rhinovirus. This explains all of her symptoms including sore throat, cough, fever overnight. Patient's mentation improved, suspect secondary to cold medication given yesterday in the setting of her illness. Stable for discharge home. Problems addressed as follows: Encephalopathy Pharyngitis -Strep, COVID, flu negative.? Intermittently confused.? Main symptom is sore throat and cough.? Sick contacts with similar symptoms. Comprehensive respiratory panel came back positive for rhinovirus and adenovirus. Did well overnight. Did have a mild fever however this can be explained by the adenovirus. Tolerating treatment for sore throat including Tylenol, ibuprofen, phenol spray. Will discharge with symptomatic treatments. Stable for discharge home to continue to convalesce. No indication to continue antibiotics given clear etiology for symptoms, viral in nature. Follow-up with PCP in the coming weeks for reevaluation. Chronic lung disease of prematurity/COPD: Continue Flonase daily, Laba/LAMA inhaler daily, albuterol inhaler every 6 hours as needed ADHD, Adderall extended release 25 mg daily Sleep order, clonidine 0.2
[2022-08-07 07:37] VITALS: BP 119/63; PULSE 76; RESP 18; TEMP 36.8; O2SAT 97
--- NOTE | 2022-08-09 13:34 | CARE MANAGER ---
Contacted patient's grandmother related to hospital discharge. She states patient is doing better. She is moving but is also resting. They have not scheduled a follow up appointment so I transferred her to [facility] to schedule an appointment. OMAR Israel
== END 2022-08-07 09:52 | disposition home or self-care (01) ==
LOC: ER 17:08 → 2ND 17:12
PROVIDERS: Admitting Provider Internal Medicine Adolescent Medicine; Emergency Provider Emergency Medicine; PCP Nurse Practitioner Family; Visit Provider Internal Medicine Adolescent Medicine
DX: G93.40 Encephalopathy, unspecified (principal); J02.9 Acute pharyngitis, unspecified; F90.2 Attention-deficit hyperactivity disorder, combined type; G93.41 Metabolic encephalopathy
CPT/HCPCS: 36415; 70450; 71045; 80053; 80305; 81001; 82140; 82803; 83605; 83735; 84145; 84436; 84443; 84484; 84703; 85025; 85610; 85730; 86140; 87581; 87632; 87798; 94640; 99285; C9803; G0378; J0696; J2405; J3370; U0003; U0005

== ENCOUNTER 2022-11-07 16:49 | Emergency (ER) | payer MEDICAID, SELFPAY ==
[2022-11-07 16:50] VITALS: BP 124/65; PULSE 86; RESP 18; TEMP 36.8; O2SAT 100; BMI 13.6
--- NOTE | 2022-11-07 17:30 | EXP.UTC ---
Discharge Plan Disposition Patient Disposition: Home, Self-Care Condition: Good Prescriptions Prescriptions: New ciprofloxacin-dexamethasone 0.3-0.1 % Drops,Suspension 2 drp Ear-Right BID 7 Days Qty: 1 0RF No Action albuterol sulfate 90 mcg/actuation HFA aerosol inhaler 2 inh IH QID PRN (Reason: shortness of breath or wheezing) 90 Days Qty: 8.5 2RF Stiolto Respimat 2.5-2.5 mcg/actuation mist 2 puff inhalation DAILY 90 Days Qty: 4 3RF azelastine 137 mcg (0.1 %) aerosol,spray 2 spray intranasal BID PRN (Reason: allergy symptoms) 90 Days Qty: 30 3RF Rx Instructions: administer into each nostril nicotine (polacrilex) 2 mg gum 2 mg buccal Q6H PRN (Reason: nicotine cravings) Qty: 100 0RF albuterol sulfate 0.63 mg/3 mL solution for nebulization 0.63 mg inhalation QID PRN (Reason: shortness of breath or wheezing) Qty: 270 3RF fluticasone propionate 50 mcg/actuation spray,suspension See Rx Instructions .ROUTE .COMPLEX Qty: 16 2RF Dose Instruction: instill 1 SPRAY IN EACH NOSTRIL EVERY DAY Rx Instructions: instill 1 SPRAY IN EACH NOSTRIL EVERY DAY omeprazole 20 mg capsule,delayed release(DR/EC) See Rx Instructions .ROUTE .COMPLEX Qty: 90 0RF Dose Instruction: TAKE ONE CAPSULE BY MOUTH EVERY DAY FOR acid reflux Rx Instructions: TAKE ONE CAPSULE BY MOUTH EVERY DAY FOR acid reflux clonidine HCl 0.2 mg tablet See Rx Instructions .ROUTE .COMPLEX Qty: 30 5RF Dose Instruction: TAKE ONE TABLET BY MOUTH EVERY DAY AT BEDTIME Rx Instructions: TAKE ONE TABLET BY MOUTH EVERY DAY AT BEDTIME Mydayis 25 mg capsule, ER triphasic 24 hr 25 mg PO DAILY Qty: 30 0RF loratadine 10 mg tablet 10 mg PO DAILY ibuprofen 400 mg Tablet 400 mg PO Q6HP PRN (Reason: Mild Pain) Qty: 0 0RF Referrals Follow up/Referrals: Aureliano Chua MD [Primary Care Provider] - See instructions Activity Restrictions/Add. Instructions Additional Instructions/Restrictions: Use the ear drops as directed. Follow up with your regular doctor. GO TO THE ER FOR ANY WORSENING SYMPTOMS Clinical Impressions Clinical Impression: External otitis of right ear Instructions Patient Instructions: How to Instill Ear Drops, DI for Otitis Externa Discharge ED Provider: John Brumfield [facility] General Stated complaint: Right ear pain Mode of Arrival: Ambulatory Source of Information: Patient Limitations: No Limitations Time Seen by Provider: 11/07/22 17:30 Description of Symptoms (Recalled from Triage Doc. by RN): Patient reports right ear pain that started last week. HEENT Symptoms (Recalled from RN notes): Yes Resp Symptoms (Recalled from RN notes): No Skin Symptoms (Recalled from RN notes): No MS Symptoms (Recalled from RN notes): No Functional Status (Recalled from RN notes): wnl Related Data Home Medications Medication Instructions Recorded Confirmed loratadine 10 mg tablet 10 mg PO DAILY allergies 03/15/22 10/22/22 Previous Rx's Medication Instructions Recorded albuterol sulfate 90 mcg/actuation 2 inh inhalation QID PRN shortness 02/18/22 aerosol inhaler of breath or wheezing 90 days #8.5 grams albuterol sulfate 0.63 mg/3 mL 0.63 mg (3 mL) inhalation QID PRN 05/19/22 solution for nebulization shortness of breath or wheezing #270 mL fluticasone propionate 50 See Rx Instructions .Route 05/28/22 mcg/actuation nasal .COMPLEX #16 grams spray,suspension ibuprofen 400 mg tablet 400 mg PO Q6HP PRN Mild Pain #0 08/07/22 tabs azelastine 137 mcg (0.1 %) nasal 2 spray intranasal BID PRN allergy 08/19/22 spray aerosol symptoms 90 days #30 mL nicotine (polacrilex) 2 mg gum 2 mg buccal Q6H PRN nicotine 08/19/22 cravings #100 ea tiotropium 2.5 mcg-olodaterol 2.5 2 puff inhalation DAILY 90 days #4 08/19/22 mcg/actuation mist for inhalation grams (Stiolto Respimat) omeprazole 20 mg capsule,delayed See Rx Instructions .Route 09/15/22 releas
[2022-11-07 17:45] VITALS: BP 124/65; PULSE 86; RESP 18; TEMP 36.8; O2SAT 100
== END 2022-11-07 17:49 | disposition home or self-care (01) ==
PROVIDERS: Emergency Provider Nurse Practitioner Family; PCP Emergency Medicine
DX: H60.91 Unspecified otitis externa, right ear (principal); J44.9 Chronic obstructive pulmonary disease, unspecified; J30.9 Allergic rhinitis, unspecified; F90.9 Attention-deficit hyperactivity disorder, unspecified type; J98.4 Other disorders of lung; Z87.891 Personal history of nicotine dependence
CPT/HCPCS: 99212; 99214; G0463

== ENCOUNTER → 2022-11-11 07:44 | Outpatient (CLI) | payer MEDICAID, SELFPAY | PROVIDERS: PCP Emergency Medicine; Visit Provider Internal Medicine Pulmonary Disease | DX: R06.09 Other forms of dyspnea (principal) | CPT/HCPCS: 94060; 94618; 94726; 94729 ==

== ENCOUNTER 2022-11-11 08:59 | Emergency (ER) | payer MEDICAID, SELFPAY ==
[2022-11-11 09:01] VITALS: BP 140/79; PULSE 107; RESP 16; TEMP 36.9; O2SAT 100; BMI 13.6
--- NOTE | 2022-11-11 09:16 | EXP.UTC ---
Discharge Plan Disposition Patient Disposition: Home, Self-Care Condition: Good Prescriptions Prescriptions: New Debrox 6.5 % drops 5 drp Ear-Right Q12H 4 Days Qty: 15 0RF No Action albuterol sulfate 90 mcg/actuation HFA aerosol inhaler 2 inh IH QID PRN (Reason: shortness of breath or wheezing) 90 Days Qty: 8.5 2RF Stiolto Respimat 2.5-2.5 mcg/actuation mist 2 puff inhalation DAILY 90 Days Qty: 4 3RF azelastine 137 mcg (0.1 %) aerosol,spray 2 spray intranasal BID PRN (Reason: allergy symptoms) 90 Days Qty: 30 3RF Rx Instructions: administer into each nostril nicotine (polacrilex) 2 mg gum 2 mg buccal Q6H PRN (Reason: nicotine cravings) Qty: 100 0RF albuterol sulfate 0.63 mg/3 mL solution for nebulization 0.63 mg inhalation QID PRN (Reason: shortness of breath or wheezing) Qty: 270 3RF fluticasone propionate 50 mcg/actuation spray,suspension See Rx Instructions .ROUTE .COMPLEX Qty: 16 2RF Dose Instruction: instill 1 SPRAY IN EACH NOSTRIL EVERY DAY Rx Instructions: instill 1 SPRAY IN EACH NOSTRIL EVERY DAY omeprazole 20 mg capsule,delayed release(DR/EC) See Rx Instructions .ROUTE .COMPLEX Qty: 90 0RF Dose Instruction: TAKE ONE CAPSULE BY MOUTH EVERY DAY FOR acid reflux Rx Instructions: TAKE ONE CAPSULE BY MOUTH EVERY DAY FOR acid reflux clonidine HCl 0.2 mg tablet See Rx Instructions .ROUTE .COMPLEX Qty: 30 5RF Dose Instruction: TAKE ONE TABLET BY MOUTH EVERY DAY AT BEDTIME Rx Instructions: TAKE ONE TABLET BY MOUTH EVERY DAY AT BEDTIME Mydayis 25 mg capsule, ER triphasic 24 hr 25 mg PO DAILY Qty: 30 0RF loratadine 10 mg tablet 10 mg PO DAILY ciprofloxacin-dexamethasone 0.3-0.1 % Drops,Suspension 2 drp Ear-Right BID 7 Days Qty: 1 0RF ibuprofen 400 mg Tablet 400 mg PO Q6HP PRN (Reason: Mild Pain) Qty: 0 0RF Referrals Follow up/Referrals: Mirza Ingram MD [Physician] - See instructions Aureliano Chua MD [Primary Care Provider] - See instructions Activity Restrictions/Add. Instructions Additional Instructions/Restrictions: Take tylenol or ibuprofen for pain. Use the ear drops as directed. Follow up with the ENT doctor. I put in a referral (Dr. Ingram), but you need to call his office and schedule yourself an appointment. Follow up with your regular doctor. GO TO THE ER FOR ANY WORSENING SYMPTOMS Clinical Impressions Clinical Impression: Impacted cerumen of right ear Instructions Patient Instructions: How to Instill Ear Drops, DI for Cerumen Impaction Discharge ED Provider: John Brumfield [facility] HPI General Stated complaint: right ear, pain Mode of Arrival: Ambulatory Source of Information: Patient Limitations: No Limitations Time Seen by Provider: 11/11/22 09:16 Description of Symptoms (Recalled from Triage Doc. by RN): Patient complaint of ongoing right ear pain despite medication. HEENT Symptoms (Recalled from RN notes): Yes Resp Symptoms (Recalled from RN notes): No Skin Symptoms (Recalled from RN notes): No MS Symptoms (Recalled from RN notes): No Functional Status (Recalled from RN notes): wnl History of Present Illness Provider Complaint: She states that her right ear feels stopped up and she is not hearing well out of it. Related Data Home Medications Medication Instructions Recorded Confirmed loratadine 10 mg tablet 10 mg PO DAILY allergies 03/15/22 10/22/22 Previous Rx's Medication Instructions Recorded albuterol sulfate 90 mcg/actuation 2 inh inhalation QID PRN shortness 02/18/22 aerosol inhaler of breath or wheezing 90 days #8.5 grams albuterol sulfate 0.63 mg/3 mL 0.63 mg (3 mL) inhalation QID PRN 05/19/22 solution for nebulization shortness of breath or wheezing #270 mL fluticasone propionate 50 See Rx Instructions .Route 05/28/22 mcg/actuation nasal .COMPLEX #16 grams spray,suspension ibuprofen 400 mg tablet 400 mg PO Q6HP PRN Mild Pain
[2022-11-11 09:46] VITALS: BP 140/79; PULSE 107; RESP 16; TEMP 36.9; O2SAT 100
== END 2022-11-11 09:54 | disposition home or self-care (01) ==
PROVIDERS: Emergency Provider Nurse Practitioner Family; PCP Emergency Medicine
DX: H61.21 Impacted cerumen, right ear (principal); H92.01 Otalgia, right ear; J44.9 Chronic obstructive pulmonary disease, unspecified; J30.9 Allergic rhinitis, unspecified; J98.4 Other disorders of lung; F90.9 Attention-deficit hyperactivity disorder, unspecified type; Z87.891 Personal history of nicotine dependence
CPT/HCPCS: 69209; 99213; 99214; G0463

== ENCOUNTER → 2022-12-07 21:05 | Outpatient (CLI) | payer MEDICAID, SELFPAY | PROVIDERS: PCP Nurse Practitioner; Visit Provider Nurse Practitioner | DX: H60.91 Unspecified otitis externa, right ear (principal); B96.89 Other specified bacterial agents as the cause of diseases classified elsewhere | CPT/HCPCS: 87070; 87186 ==

== ENCOUNTER 2023-01-19 10:45 | Emergency (ER) | payer MEDICAID, SELFPAY ==
[2023-01-19 10:46] VITALS: BP 139/76; PULSE 93; RESP 18; TEMP 36.8; O2SAT 99; BMI 15.0
--- NOTE | 2023-01-19 11:10 | EXP.UTC ---
Discharge Plan Disposition Patient Disposition: Home, Self-Care Condition: Good Prescriptions Prescriptions: New azithromycin [Zithromax] 200 mg/5 mL suspension for reconstitution See Rx Instructions .ROUTE .COMPLEX Qty: 30 0RF Rx Instructions: take 9 mL (362.9mg) by mouth today (day 1), then 4.5 mL (181.5mg) daily for 4 days (days 2-5)- pt wt 80 lbs No Action albuterol sulfate 90 mcg/actuation HFA aerosol inhaler 2 inh IH QID PRN (Reason: shortness of breath or wheezing) 90 Days Qty: 8.5 2RF mupirocin 2 % ointment 1 applic topical TID Qty: 22 0RF albuterol sulfate 0.63 mg/3 mL solution for nebulization 0.63 mg inhalation QID PRN (Reason: shortness of breath or wheezing) Qty: 270 3RF clonidine HCl 0.2 mg tablet See Rx Instructions .ROUTE .COMPLEX Qty: 30 5RF Dose Instruction: TAKE ONE TABLET BY MOUTH EVERY DAY AT BEDTIME Rx Instructions: TAKE ONE TABLET BY MOUTH EVERY DAY AT BEDTIME fluticasone propionate 50 mcg/actuation spray,suspension See Rx Instructions .ROUTE .COMPLEX Qty: 16 2RF Dose Instruction: instill 1 SPRAY IN EACH NOSTRIL EVERY DAY Rx Instructions: instill 1 SPRAY IN EACH NOSTRIL EVERY DAY azelastine 137 mcg (0.1 %) aerosol,spray 2 spray intranasal BID PRN (Reason: allergy symptoms) 90 Days Qty: 30 3RF Rx Instructions: administer into each nostril loratadine 10 mg tablet See Rx Instructions .ROUTE .COMPLEX Qty: 90 5RF Dose Instruction: TAKE ONE TABLET BY MOUTH EVERY DAY Rx Instructions: TAKE ONE TABLET BY MOUTH EVERY DAY Stiolto Respimat 2.5-2.5 mcg/actuation mist 2 puff inhalation DAILY 90 Days Qty: 4 3RF buspirone 5 mg tablet 5 mg PO BID Qty: 60 2RF Mydayis 25 mg capsule, ER triphasic 24 hr 25 mg PO DAILY Qty: 30 0RF omeprazole 20 mg capsule,delayed release(DR/EC) See Rx Instructions .ROUTE .COMPLEX Qty: 90 0RF Dose Instruction: TAKE ONE CAPSULE BY MOUTH EVERY DAY FOR acid reflux Rx Instructions: TAKE ONE CAPSULE BY MOUTH EVERY DAY FOR acid reflux Referrals Follow up/Referrals: Aureliano Chua MD [Primary Care Provider] - See instructions Activity Restrictions/Add. Instructions Additional Instructions/Restrictions: Start antibiotic patient to take as ordered for a full length of time even if you feel better. Sinus infections do not get better overnight. It may take 2-3 days to notice much improvement so be sure to use conservative measures as discussed for symptoms. Flonase 1 spray each nostril daily to help with nasal congestion, sinus and ear pressure/information Increase fluids Humidifier/vaporizer as needed Tylenol and ibuprofen as needed for fever or pain. If symptoms do not improve or get worse return or be seen in the ER Follow-up with primary care this week Clinical Impressions Clinical Impression: Sinusitis Qualifiers: Sinusitis location: maxillary Chronicity: acute Recurrence: non-recurrent Qualified Code(s): J01.00 - Acute maxillary sinusitis, unspecified Instructions Patient Instructions: DI for Sinusitis Discharge ED Provider: Kleber ([facility])I[facility] HPI General Stated complaint: COUGH AND CONGESTION Mode of Arrival: Ambulatory Source of Information: Patient Limitations: No Limitations Time Seen by Provider: 01/19/23 11:10 Description of Symptoms (Recalled from Triage Doc. by RN): sinus infection, congestion, and coughing HEENT Symptoms (Recalled from RN notes): Yes Resp Symptoms (Recalled from RN notes): No Skin Symptoms (Recalled from RN notes): No MS Symptoms (Recalled from RN notes): No Functional Status (Recalled from RN notes): n/a History of Present Illness Provider Complaint: 23 yr old female presents for green nasal drainage, sinus pressure, congestion and cough for 3 days Related Data Previous Rx's Medication Instructions Recorded albuterol sulfate 90 mcg/actuation 2 inh inhalation QID PRN shortness 02/18/22 aerosol inhaler
[2023-01-19 11:29] VITALS: BP 139/76; PULSE 93; RESP 18; TEMP 36.8; O2SAT 99
== END 2023-01-19 11:20 | disposition home or self-care (01) ==
PROVIDERS: Emergency Provider Nurse Practitioner Family; PCP Emergency Medicine
DX: J01.00 Acute maxillary sinusitis, unspecified (principal); J44.9 Chronic obstructive pulmonary disease, unspecified; J98.4 Other disorders of lung; F90.9 Attention-deficit hyperactivity disorder, unspecified type; Z87.891 Personal history of nicotine dependence
CPT/HCPCS: 99212; 99214; G0463

== ENCOUNTER → 2023-02-16 23:35 | Outpatient (CLI) | payer MEDICAID, SELFPAY ==
[2023-02-16 21:38] LABS: Amphetamine/Metha Screen,Urine Positive ng/ml (<1000)
[2023-02-16 21:39] LABS: Barbiturates Screen,Urine Negative ng/ml (<200); Benzodiazepines Screen,Urine Negative ng/ml (<200)
[2023-02-16 21:41] LABS: Cannabinoid Screen,Urine Negative ng/ml (<50); Cocaine Screen,Urine Negative ng/ml (<300)
[2023-02-16 21:42] LABS: Methadone Screen,Urine Negative ng/ml (<300)
[2023-02-16 21:43] LABS: Opiate Screen,Urine Negative ng/ml (<300); Phencyclidine Screen,Urine Negative ng/ml (<25)
== END ==
PROVIDERS: PCP Nurse Practitioner Family; Visit Provider Nurse Practitioner Family
DX: Z79.899 Other long term (current) drug therapy (principal)
CPT/HCPCS: 80305

== ENCOUNTER 2023-11-26 11:32 | Emergency (ER) | payer MEDICAID, SELFPAY ==
[2023-11-26 12:20] VITALS: BP 125/80; PULSE 76; RESP 18; TEMP 36.7; O2SAT 100; BMI 15.6
--- NOTE | 2023-11-26 12:32 | EXP.UTC ---
Discharge Plan Disposition Patient Disposition: Home, Self-Care Condition: Good Prescriptions Prescriptions: New prednisone 5 mg tablet 5 mg PO BID 3 Days Qty: 6 0RF No Action clonidine HCl 0.2 mg tablet 0.2 mg PO DAILY Patient Comments: TAKE ONE TABLET BY MOUTH EVERY DAY AT BEDTIME omeprazole 20 mg capsule,delayed release(DR/EC) 20 mg PO DAILY Patient Comments: TAKE ONE CAPSULE BY MOUTH EVERY DAY FOR acid reflux fluticasone propionate 50 mcg/actuation spray,suspension 1 spray INTRANASAL DAILY Patient Comments: instill 1 SPRAY IN EACH NOSTRIL EVERY DAY loratadine 10 mg tablet 10 mg PO DAILY Patient Comments: TAKE ONE TABLET BY MOUTH EVERY DAY Stiolto Respimat 2.5-2.5 mcg/actuation mist 2 puff INHALATION DAILY Patient Comments: INHALE TWO PUFFS BY MOUTH EVERY DAY dextroamphetamine-amphetamine [Mydayis] 25 mg capsule, ER triphasic 24 hr 25 mg PO DAILY Patient Comments: TAKE ONE CAPSULE BY MOUTH EVERY DAY Referrals Follow up/Referrals: Jesse Clarke APRN [Primary Care Provider] - See instructions Activity Restrictions/Add. Instructions Additional Instructions/Restrictions: No sign of a bacterial infection. Likely viral. Viruses can take 7-14 days to run their course. Nasal saline and bulb syringe or nose Griselda to remove nasal drainage to help with nasal congestion. Hard to eat, drink, sleep with nasal congestion so important to keep this cleaned out. Monitor temp. Tylenol or Motrin as needed for pain or fever Encourage fluids, water, Gatorade, Powerade, Pedialyte if infant/toddler/child Warm salt water gargles Warm fluids Sore throat lozenges Sleep elevated Humidifier/vaporizer Follow-up immediately for new or worsening symptoms or no noticeable improvement over the next 48-72 hours. Clinical Impressions Clinical Impression: Upper respiratory infection, viral Acute bronchitis Qualifiers: Bronchitis organism: other organism Qualified Code(s): J20.8 - Acute bronchitis due to other specified organisms Instructions Patient Instructions: DI for Acute Bronchitis, DI for Viral Upper Respiratory Infection -- Adult Print Language Print Language: Gabonese Discharge ED Provider: Kleber ([facility])Ivon [facility] [place] HPI General Stated complaint: cough, fever, congestion Mode of Arrival: Ambulatory Source of Information: Patient Limitations: No Limitations Time Seen by Provider: 11/26/23 12:32 Description of Symptoms (Recalled from Triage Doc. by RN): PATIENT C/O RUNNY NOSE, CONGESTION AND HEADACHE SINCE TUESDAY HEENT Symptoms (Recalled from RN notes): Yes Resp Symptoms (Recalled from RN notes): No Skin Symptoms (Recalled from RN notes): No MS Symptoms (Recalled from RN notes): No Functional Status (Recalled from RN notes): WNL History of Present Illness Provider Complaint: 23 yr old female presents for c/o cough, fever, savage, and clear congestion since Related Data Home Medications ?Medication ?Instructions ?Recorded ?Confirmed clonidine HCl 0.2 mg tablet 0.2 mg PO DAILY 11/26/23 11/26/23 dextroamphetamine-amphetamine ER 25 mg PO DAILY 11/26/23 11/26/23 25 mg capsule,3 bead,ext release 24hr (Mydayis) fluticasone propionate 50 1 spray intranasal DAILY 11/26/23 11/26/23 mcg/actuation nasal spray,suspension loratadine 10 mg tablet 10 mg PO DAILY 11/26/23 11/26/23 omeprazole 20 mg capsule,delayed 20 mg PO DAILY 11/26/23 11/26/23 release tiotropium 2.5 mcg-olodaterol 2.5 2 puff inhalation DAILY 11/26/23 11/26/23 mcg/actuation mist for inhalation (Stiolto Respimat) Previous Rx's ?Medication ?Instructions ?Recorded prednisone 5 mg tablet 5 mg PO BID 3 days #6 tabs 11/26/23 Allergies Allergy/AdvReac Type Severity Reaction Status Date / Time No Known Allergies Allergy Verified 09/27/23 10:47 Worker's Comp Is this a Worker's Comp case?: No [facility] Disclaimer: The information contained in this section may have been updated after the patient was seen, as this information can be updated by other users. Medical History , WELT TREATER) History of acute otitis externa History of impacted cerumen Impacted cerumen of both ears Otalgia Allergic rhinitis History of gastrostomy tube placement Tobacco abuse disorder Tobacco abuse counseling Restrictive lung disease COPD (chronic obstructive pulmonary disease) Dyspnea on exertion Attention Deficit Hyperactivity Disorder (ADHD) Surgical History , WELT TREATER) History of tracheostomy as a child Family History , WELT TREATER) Family history of cancer Family history of hypertension Family history of COPD (chronic obstructive pulmonary disease) Family history of hyperlipidemia Social History , WELT TREATER) Smoking Status: Former smoker tobacco type: cigarettes packs per day: 1 alcohol intake: never substance use type: denies use current occupational status: other Travel in the last 8 weeks: None household members: family housing: house ROS Obtained: Yes All systems reviewed & no additional complaints except as documented Constitutional Constitutional: Reports system reviewed and no additional complaints, except as documented and Reports as per HPI Eyes Eyes: Reports system reviewed and no additional complaints, except as documented ENT Ears, Nose, Mouth, and Throat: Reports system reviewed and no additional complaints, except as documented, Reports as per HPI, Reports nasal congestion, Reports nasal discharge and Reports post nasal drip Cardiovascular Cardiovascular: Reports system reviewed and no additional complaints, except as documented Respiratory Respiratory: Reports system reviewed and no additional complaints, except as documented Gastrointestinal Gastrointestingal: Reports system reviewed and no additional complaints, except as documented Musculoskeletal Musculoskeletal: Reports system reviewed and no additional complaints, except as documented Integumentary/Breasts Skin/Breast: Reports system reviewed and no additional complaints, except as documented Neurologic Neurologic: Reports system reviewed and no additional complaints, except as documented Endocrine Endocrine: Reports system reviewed and no additional complaints, except as documented Hematologic/Lymphatic Henatologic/Lymphatic: Reports system reviewed and no additional complaints, except as documented Allergic/Immunologic Allergic/Immunologic: Reports system reviewed and no additional complaints, except as documented, Reports as per HPI and Reports seasonal rhinorrhea Physical Exam General General appearance: alert and in no apparent distress Eye Eye exam: Present normal appearance and PERRL ENT ENT exam: Present mucous membranes moist and TM's normal bilaterally Expanded ENT Exam Nose exam: Present sinus tenderness Respiratory Respiratory exam: Present wheezes (scattered) Cardiovascular Cardiovascular exam: Present regular rate and normal rhythm Neurological Exam Neurological exam: Present alert and oriented X3 Skin Skin exam: Present warm Medical Decision Making Medical Records Medical records reviewed: Yes I reviewed the patient's medical records. Bhanu Inquiry Pt receiving controlled substance: No Bhanu was queried for this patient: No Vital Signs: 11/26/23 12:20 Temperature 98.1 F Temperature Source Oral Pulse Rate [Left Brachial] 76 Respiratory Rate 18 Blood Pressure [Left Arm] 125/80 Blood Pressure Mean [Left Arm] 95 Blood Pressure Source [Left Arm] Automatic Cuff Blood Pressure Position [Left Arm] Sitting 02 Sat by Pulse Oximetry 100 Oxygen Delivery Method Room Air Lab Data Lab results reviewed: Yes I reviewed the patient's lab results.
[2023-11-26 12:41] LABS: Coronavirus 19, PCR Not Detected (NotDetected); Influenza A, PCR Not Detected (NotDetected); Influenza B, PCR Not Detected (NotDetected)
[2023-11-26 12:44] VITALS: BP 125/80; PULSE 76; RESP 18; TEMP 36.7; O2SAT 100
== END 2023-11-26 12:47 | disposition home or self-care (01) ==
PROVIDERS: Emergency Provider Nurse Practitioner Family; PCP Nurse Practitioner Family
DX: J20.8 Acute bronchitis due to other specified organisms (principal); R51.9 Headache, unspecified; R50.9 Fever, unspecified; R05.9 Cough, unspecified; J06.9 Acute upper respiratory infection, unspecified; B34.9 Viral infection, unspecified
CPT/HCPCS: 87636; 99212; 99214; G0463

== ENCOUNTER 2023-12-01 10:00 | Outpatient (CLI) | payer MEDICAID, SELFPAY ==
--- NOTE | 2023-12-01 11:28 | PC.NURSE ---
Pt informed to reschedule due to illness.
== END 2023-12-01 23:59 | disposition home or self-care (01) ==
LOC: RT 10:01
PROVIDERS: PCP Nurse Practitioner Family; Visit Provider Internal Medicine Pulmonary Disease
DX: R06.02 Shortness of breath (principal)

== ENCOUNTER 2023-12-14 07:52 | Outpatient (CLI) | payer MEDICAID, SELFPAY ==
[2023-12-14 09:35] VITALS: PULSE 75; PULSE 80
[2023-12-14] MEDS: ALBUTEROL 0.083% 2.5 MG/3 ML NEB IH (09:35)
== END 2023-12-14 23:59 | disposition home or self-care (01) ==
LOC: RT 07:52
PROVIDERS: PCP Nurse Practitioner Family; Visit Provider Internal Medicine Pulmonary Disease
DX: R06.09 Other forms of dyspnea (principal)
CPT/HCPCS: 94060; 94618; 94640; 94726; 94729; J7613

== ENCOUNTER 2024-12-12 07:55 | Outpatient (CLI) | payer MEDICAID, SELFPAY ==
--- OUTSIDE RECORDS SUMMARY | 2024-12-12 07:58 | XMS_ITS | Clinical Summary ---
Author Organization Healthcare Address [address] [place] [address] Care Team Providers Care Hollock Maker Name Role Phone Unavailable Primary Care Provider Unavailabl e Family History Medical History Relation Name Comments Glaucoma Maternal Grandmother Glaucoma Maternal Great-Grandmother Relation Name Status Comments Maternal Grandmother Maternal Great-Grandmother Social History Tobacco Use Types Packs/Day Years Used Date Smoking Tobacco: Never Comments Unknown Sex and Gender Information Value Date Recorded Sex Assigned at Not on file Legal Sex Female 5:58 PM EDT Gender Identity Not on file Sexual Orientation Not on file Plan of Treatment Health Maintenance Due Date Last Done Comments [facility]-Depression Screening 1999 [facility]-HIV Screening 1999 [facility]-Hepatitis C Screening 1999 [facility]-/Child/Adol SDOH Screenings 1999 [facility]- SDOH Screenings 2017 [facility]-Adult SDOH Screenings 2017 [facility]-Hepatitis B Vaccines (1 of 3 - 19+ 3-dose series) 2018 [facility]-Pap Smear 01/16/2020 [facility]-DTaP,Tdap,and Td Vaccines (2 - Td or Tdap) 10/27/2022 10/27/2012 [id number] Vaccine ( - season) 2023 03/14/2021, 08/26/2020, 07/29/2020 [facility]-Influenza Vaccine (#1) 12/10/202401/03, 01/25/2018, 01/12/2017 [facility]-Zoster Vaccines (1 of 2) 2049, 01/20/2000 [facility]-Pneumococcal Vaccine: Pediatrics (0 to 5 Years) and At-Risk Patients (6 to 49 Years) Aged Out 07/06/2000 No longer eligible b ased on patient's age to complete this topic [facility]-Varicella Vaccines Completed 9, 01/20/2000 HPV Vaccines Completed 11/22/2016, 08/03/2016, 05/25/2016 [facility]-Hepatitis A Vaccines Completed 018, 03/23/2017 [facility]-HIB Vaccines Aged Out No longer e ligible based on patient's age to complete this topic [facility]-IPV Vaccines Aged Out No longer e ligible based on patient's age to complete this topic [facility]-Rotavirus Vaccines Aged Out No lo nger eligible based on patient's age to complete this topic Insurance [employer]
[2024-12-12] MEDS: ALBUTEROL 0.083% 2.5 MG/3 ML NEB IH (09:00)
== END 2024-12-12 23:59 | disposition home or self-care (01) ==
LOC: RT 07:56
PROVIDERS: PCP Nurse Practitioner Family; Visit Provider Internal Medicine Pulmonary Disease
DX: J44.9 Chronic obstructive pulmonary disease, unspecified (principal); R94.2 Abnormal results of pulmonary function studies
CPT/HCPCS: 94010; 94618

== ENCOUNTER 2025-02-15 09:03 | Emergency (ER) | payer MEDICAID, SELFPAY ==
[2025-02-15] VITALS (10 sets, daily range): BP systolic 94–131; BP diastolic 34–84; PULSE 63–105; RESP 18; TEMP 36.6–36.7; O2SAT 98–100; BMI 13.6
--- NOTE | 2025-02-15 09:07 | ED_ITS ---
Discharge Plan Disposition Patient Disposition: Home, Self-Care Condition: Good Prescriptions Prescriptions: New ondansetron 4 mg tablet,disintegrating 4 mg PO Q8H PRN (Reason: nausea and vomiting) 3 Days Qty: 12 0RF dicyclomine 20 mg tablet 20 mg PO QID PRN (Reason: abdominal pain) Qty: 30 0RF polyethylene glycol 3350 [Miralax] 17 gram/dose powder 17 g PO DAILY 4 Days Qty: 68 0RF No Action albuterol sulfate 0.63 mg/3 mL solution for nebulization 0.63 mg inhalation QID PRN (Reason: shortness of breath or wheezing) Qty: 75 3RF dextroamphetamine-amphetamine [Mydayis] 25 mg capsule, ER triphasic 24 hr 25 mg PO DAILY 60 Days Qty: 60 0RF loratadine 10 mg tablet See Rx Instructions .ROUTE .COMPLEX Qty: 90 5RF Dose Instruction: TAKE ONE TABLET BY MOUTH EVERY DAY Rx Instructions: TAKE ONE TABLET BY MOUTH EVERY DAY buspirone 5 mg tablet See Rx Instructions .ROUTE .COMPLEX Qty: 180 2RF Dose Instruction: TAKE ONE TABLET BY MOUTH TWICE DAILY Rx Instructions: TAKE ONE TABLET BY MOUTH TWICE DAILY Stiolto Respimat 2.5-2.5 mcg/actuation mist See Rx Instructions .ROUTE .COMPLEX Qty: 4 5RF Dose Instruction: INHALE TWO PUFFS BY MOUTH EVERY DAY Rx Instructions: INHALE TWO PUFFS BY MOUTH EVERY DAY fluticasone propionate 50 mcg/actuation spray,suspension See Rx Instructions .ROUTE .COMPLEX Qty: 16 2RF Dose Instruction: instill 1 SPRAY IN EACH NOSTRIL EVERY DAY Rx Instructions: instill 1 SPRAY IN EACH NOSTRIL EVERY DAY omeprazole 20 mg capsule,delayed release(DR/EC) 20 mg PO DAILY Qty: 90 3RF clonidine HCl 0.2 mg tablet See Rx Instructions .ROUTE .COMPLEX Qty: 90 3RF Dose Instruction: TAKE ONE TABLET BY MOUTH EVERY DAY AT BEDTIME Rx Instructions: TAKE ONE TABLET BY MOUTH EVERY DAY AT BEDTIME azelastine 137 mcg (0.1 %) spray,non-aerosol See Rx Instructions .ROUTE .COMPLEX Qty: 30 3RF Dose Instruction: USE 2 SPRAYS INTO EACH NOSTRIL TWICE DAILY NEEDED FOR ALLERGY SYMPTOMS Rx Instructions: USE 2 SPRAYS INTO EACH NOSTRIL TWICE DAILY NEEDED FOR ALLERGY SYMPTOMS albuterol sulfate [Ventolin HFA] 90 mcg/actuation HFA aerosol inhaler See Rx Instructions .ROUTE .COMPLEX Qty: 18 2RF Dose Instruction: INHALE TWO PUFFS BY MOUTH FOUR TIMES DAILY NEEDED FOR SHORTNESS OF BREATH OR wheezing Rx Instructions: INHALE TWO PUFFS BY MOUTH FOUR TIMES DAILY NEEDED FOR SHORTNESS OF BREATH OR wheezing Referrals Follow up/Referrals: Jesse Clarke APRN [Primary Care Provider, Family Practice] - See instructions Activity Restrictions/Add. Instructions Additional Instructions/Restrictions: Take 1 capful of Miralax mixed into 4-8 oz of juice or water every 30-60 minutes for a total of 8-10 doses. This will likely cause lots of loose and watery stools. Do this for 1 day only. Please also note that if you do this with a red juice, the stool will also be red and may be confused with blood. The following day, start 1 capful of miralax mixed into 4-8 oz of juice or water and take daily. This amount may oil changer time. If stools are too loose, you may decrease the amount of Miralax. Likewise, if you are still not having 1-2 soft bowel movements daily then you may increase it. You may go as little as 1 teaspoon daily or as much as 2 capfuls daily. The goal is to have 1-2 soft bowel movements daily. You will need to be on Miralax for at least 6 months to avoid further constipation. Please follow up with your primary care provider in 2-3 days. Follow-up with your bilingual sales representative about your lung disease. Follow up with your PCP about hiatal hernia. Return if any fevers or worsening abdominal pain Please return to ED if your symptoms worsen, change in location, change in severity, new symptoms develop or if you become concerned for your health. 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 She is not a good historian. She reports that now she takes medicines for ADHD, GERD, insomnia. She presents today due to acute onset of abdominal pain. She woke up this morning and was feeling her normal self. As the morning has progressed, she has felt steadily worsening right lower quadrant abdominal pain radiating to the suprapubic area. She reports that it is sharp in nature. Does not radiate to her back. Denies any flank pain dysuria or hematuria. Reports that her last period was last week and she does not usually have particularly heavy periods. She reports nausea without vomiting. Denies any diarrhea. In fact, reports that she only has a bowel movement once every few days and cannot recall the last time she had a bowel movement, but thinks that it might have been 2 days ago. She denies any fevers cough congestion runny nose or other sick symptoms. Denies any sick contacts. Not sexually active, no concern for STDs. No vaginal discharge Related Data Previous Rx's ?Medication ?Instructions ?Recorded loratadine 10 mg tablet See Rx Instructions .Route 0 06/20/24 .COMPLEX #90 tabs buspirone 5 mg tablet See Rx Instructions .Route 0 08/03/24 .COMPLEX #180 tabs tiotropium 2.5 mcg-olodaterol 2.5 See Rx Instructions .Route 10/01/24 mcg/actuation mist for inhalation .COMPLEX #4 grams (Stiolto Respimat) fluticasone propionate 50 See Rx Instructions .Route 0 10/24/24 mcg/actuation nasal .COMPLEX #16 grams spray,suspension omeprazole 20 mg capsule,delayed 20 mg PO DAILY #90 ca ps 10/27/24 release clonidine HCl 0.2 mg tablet See Rx Instructions .Route 12/04/24 .COMPLEX #90 tabs azelastine 137 mcg (0.1 %) nasal See Rx Instructions . Route 12/11/24 spray .COMPLEX #30 mL albuterol sulfate 0.63 mg/3 mL 0.63 mg (3 mL) inhalati on QID PRN 12/19/24 solution for nebulization shortness of breath or wheez ing #75 mL albuterol sulfate 90 mcg/actuation See Rx Instructions .Route 01/14/25 aerosol inhaler (Ventolin HFA) .COMPLEX #18 grams dextroamphetamine-amphetamine ER 25 mg PO DAILY 60 day s #60 caps 01/16/25 25 mg capsule,3 bead,ext release 24hr (Mydayis) dicyclomine 20 mg tablet 20 mg PO QID PRN abdominal p ain 02/15/25 #30 tabs ondansetron 4 mg disintegrating 4 mg PO Q8H PRN nausea and 02/15/25 tablet vomiting 3 days #12 tabs polyethylene glycol 3350 17 17 g PO DAILY 4 days #68 g priyanka 02/15/25 gram/dose oral powder (Miralax) Allergies Allergy/AdvReac Type Severity Reaction Status Date / Time No Known Allergies Allergy Verified 01/16/25 15:49 [facility] Disclaimer: The information contained in this section may have been updated after the patient was seen, as this information can be updated by other users. Medical History Cervical cancer screening History of acute otitis externa History of impacted cerumen She had cerumen impactions in both ear canals that I cleaned. She has ear canal stenosis but no otitis externa and underlying tympanic membranes are normal. Routine follow-up will be scheduled in 8 months. Impacted cerumen of both ears Otalgia Allergic rhinitis History of gastrostomy tube placement Tobacco abuse disorder Tobacco abuse counseling Restrictive lung disease COPD (chronic obstructive pulmonary disease) Dyspnea on exertion Attention Deficit Hyperactivity Disorder (ADHD) Surgical History History of tracheostomy as a child Family History Other Family history of COPD (chronic obstructive pulmonary disease) Family history of cancer Family history of hyperlipidemia Family history of hypertension Social History Smoking Status: Never smoker alcohol intake: never substance use type: denies use current occupational status: other Travel in the last 8 weeks?: None household members: family housing: house Have you lived/traveled outside US in past 30 days?: No Contact w/someone who lives/traveled outside US past 30 days?: No Exposure to someone with infectious disease in past 14 days?: No Do you have a fever (greater than 100.4 F or 38 C)?: No Have you tested positive for COVID-19?: No Exposed to someone with COVID-19 in past 14 days?: No Do you have a sore throat?: No Do you have a cough?: No Do you have any weakness?: No Do you have any diarrhea?: No Are you experiencing any unusual bleeding?: No Do you have any muscle aches/pain?: No Do you have any abdominal pain?: No Are you experiencing loss of taste or smell?: No Other Medical History Have you received the Flu Vaccine for this season: No Have you received the Pneumonia Vaccine: Yes ROS Obtained: Yes All systems reviewed & no additional complaints except as documented Physical Exam General General appearance: alert and in no apparent distress Head Head exam: atraumatic and normocephalic Eye Eye exam: Present PERRL and EOMI ENT ENT exam: Present normal oropharynx Neck Neck exam: Present full ROM and trachea midline Chest Chest inspection: Present symmetric chest wall rise Respiratory Respiratory exam: Present normal lung sounds bilaterally; Absent stridor Cardiovascular Cardiovascular exam: Present regular rate and normal rhythm Abdominal Exam Abdominal exam: Present soft, tenderness (rlq ttp) and tenderness at McBurney's Point; Absent distention Extremities Exam Extremities exam: Present full ROM Neurological Exam Neurological exam: Present alert and oriented X3 Psychiatric Psychiatric exam: Present normal mood Skin Skin exam: Present warm and dry Medical Decision Making Medical Records Screening: Per USPSTF and CDC recommendations, given the prevalence of disease in our region, it is our hospital?s policy to screen for HIV and viral Hepatitis for all patients aged 18 and over and those with ongoing risk factors. Bhanu Inquiry Pt receiving controlled substance: No Vital Signs: 02/15/25 09:12 02/15/25 09:17 02/15/25 10:00 Temperature 97.9 F Temperature Source Oral Pulse Rate 66 69 Pulse Rate [Radial] 78 Respiratory Rate 18 Blood Pressure 122/74 108/61 L Blood Pressure [Right Arm] 122/84 Blood Pressure Mean [Right Arm] 96 Blood Pressure Source [Right Arm] Automatic Cuff Blood Pressure Position [Right Arm] Sitting 02 Sat by Pulse Oximetry 100 99 100 Oxygen Delivery Method Room Air 02/15/25 10:31 02/15/25 11:00 02/15/25 11:20 Temperature Temperature Source Pulse Rate 75 63 105 H Pulse Rate [Radial] Respiratory Rate Blood Pressure 104/34 L 105/62 L 118/71 Blood Pressure [Right Arm] Blood Pressure Mean [Right Arm] Blood Pressure Source [Right Arm] Blood Pressure Position [Right Arm] 02 Sat by Pulse Oximetry 100 100 100 Oxygen Delivery Method Room Air Room Air Room Air 02/15/25 11:30 02/15/25 12:00 02/15/25 12:30 Temperature Temperature Source Pulse Rate 76 65 65 Pulse Rate [Radial] Respiratory Rate Blood Pressure 104/58 L 111/66 94/53 L Blood Pressure [Right Arm] Blood Pressure Mean [Right Arm] Blood Pressure Source [Right Arm] Blood Pressure Position [Right Arm] 02 Sat by Pulse Oximetry 100 100 100 Oxygen Delivery Method Room Air Lab Data Lab Results 02/15/25 09:12: Urine Color Yellow, Urine Appearance Clear, Urine pH 7.0, Ur Specific [place] 1.020, Urine Protein Negative, Urine Glucose (UA) Negative, Urine Ketones Negative, Urine Blood Negative, Urine Nitrate Negative, Urine Bilirubin Negative, Urine Urobilinogen 0.2, Ur Leukocyte Esterase Negative, Urine RBC None, Urine WBC Occasional, Ur Squamous Epith Cells 5-10, Urine Bacteria Trace 02/15/25 09:41: WBC 7.5, RBC 4.78, Hgb 12.0 L, Hct 38.5, MCV 80.5 L, MCH 25.1 L, MCHC 31.2 L, RDW 16.0, Plt Count 352, MPV 8.5, Neut % (Auto) 74.2, Lymph % (Auto) 18.3, [place] % (Auto) 5.9, Eos % (Auto) 0.7, Baso % (Auto) 0.4, Neut # (Auto) 5.5, Lymph # (Auto) 1.4, Mills # (Auto) 0.4, Eos # (Auto) 0.1, Baso # (Auto) 0.0, Sodium 133 L, Potassium 4.2, Chloride 98, Carbon Dioxide 27, Anion Gap 12.2, BUN 15, Creatinine 0.70, Estimated Creat Clear 61, Estimated GFR 101, Est GFR ( Amer) 122, Glucose 117 H, Lactate 1.3, Calcium 9.3, Total Bilirubin 0.4, AST 24, ALT 14, Alkaline Phosphatase 68, Total Protein 8.4 H, Albumin 4.9, Globulin 3.5 H, Albumin/Globulin Ratio 1.4, Lipase 83, Serum HCG, Qual Negative, HCV Ab KEIRA w/Rflx PCR Qn Negative, HIV Ag/Ab Combo Qual Negative 02/15/25 09:41 02/15/25 09:41 Orders (Tests/Meds): ED MEDICATIONS Discontinued Medications Generic Name Dose Route Start Last Admin Trade Name Landen PRN Reason Stop Dose Admin Acetaminophen 1,000 mg 02/15/25 09:21 02/15/25 09:45 Acetaminophen 1,000mg/100ml Vial IV 02/15/25 09:22 1,000 mg ONCE ONE Administration Sodium Chloride 1,000 mls @ 999 mls/hr 02/15/25 09:21 02/15/25 10:47 Sod Chlor 0.9% 1000ml Bag IV 02/15/25 10:21 999 mls/hr .Q1H1M ONE Infusion Iopamidol 70 ml 02/15/25 11:16 02/15/25 11:17 Iopamidol-370 (76%);100ml Bottle IV 02/15/25 11:17 70 ml ONCE ONE Administration Ketorolac Tromethamine 15 mg 02/15/25 09:21 02/15/25 09:46 Ketorolac 15mg/Ml Vial IV 02/15/25 09:22 15 mg ONCE ONE Administration Ondansetron HCl 4 mg 02/15/25 09:21 02/15/25 09:46 Ondansetron 4mg/2ml Vial IV 02/15/25 09:22 4 mg ONCE ONE Administration ORDERS Category Date Time Status CT abdomen pelvis w con Stat Cat Scan 02/15/25 09:21 Completed CBC w/Auto Diff [Complete Blood Count Auto Diff] Stat Lab 02/15/25 09:41 Completed CMP [Comprehensive Metabolic Panel] Stat Lab 02/15/25 09:41 Completed HCG Qualitative, Serum Stat Lab 02/15/25 09:41 Completed HIV Combo Stat Lab 02/15/25 09:41 Completed Hepatitis C Ab Qual. W/ RFX Stat Lab 02/15/25 09:41 Completed Lactic Acid Stat Lab 02/15/25 09:41 Completed Lipase Stat Lab 02/15/25 09:41 Completed UA [Urinalysis and Microscopic] Stat Lab 02/15/25 09:12 Completed Medical Decision Narrative: In summary, this 25-year-old female presents to the emergency department today with abdominal pain. On initial evaluation patient is afebrile, hemodynamically stable, no acute distress. On exam is warm and well-perfused with full pulses and brisk capillary refill. She appears very small for stated age, only weighs 30 kg. She looks somewhat dry with dry mucous membranes, but appears well- perfused. Will fluid resuscitate. Abdomen is soft, no peritoneal signs, significant right lower quadrant abdominal tenderness with positive McBurney's. No adnexal tenderness overtly. No flank tenderness.. Differential diagnosis includes but is not limited to appendicitis, constipation, pyelonephritis, kidney stone, intra-abdominal abscess, bowel obstruction. Based on these concerns, I ordered CBC CMP lipase lactate CT abdomen pelvis. I reviewed prior records including admission in 2022 for altered mental status, unknown etiology, return to baseline.. Follows regularly with pulmonology, diagnosed with COPD secondary to smoking and premature underdeveloped lungs Patient received Tylenol Toradol fluids for treatment. Labs personally reviewed demonstrate no leukocytosis, mild anemia, not acutely actionable. Mild hyponatremia to 133, not acutely actionable, no HAYDE no other electrolyte derangement. Urinalysis without evidence of infection. CT imaging personally interpreted demonstrate significant stool burden without obstruction. Confirmed by radiology final read. Also remarks upon hiatal hernia and known parenchymal lung disease.. The radiologist was not able to identify the appendix, but on reassessment, patient's abdomen is nontender. No secondary inflammatory changes. Given her improvement in her symptoms, favored to be less likely. Not meeting any criteria for sepsis at this time On reassessment patient reports resolution in her symptoms. I suspect that it was secondary to a ruptured ovarian cyst versus constipation.. Of note, social determinants of health include poor health literacy. At this time it was felt that the patient was safe to be discharged home. The patient was in agreement with this plan. The patient was given strict return precautions prior to being discharged from the emergency department. Critical Care Critical Care Time Critical Care Time: No
--- OUTSIDE RECORDS SUMMARY | 2025-02-15 09:11 | XMS_ITS | Clinical Summary ---
Author Organization Healthcare Address [address] [place] [address] Care Team Providers Care Gluing Machine Offbearer Name Role Phone Unavailable Primary Care Provider [...] Date Last Done Comments [facility]-Depression Screening 1999 [facility]-/Child/Adol SDOH Screenings 1999 [facility]- SDOH Screenings 2017 [facility]-Adult SDOH Screenings 2017 [facility]-Hepatitis B Vaccines (1 of 3 - 19+ 3-dose series) 2018 [facility]-Pap Smear 01/16/2020 [facility]-DTaP,Tdap,and Td Vaccines (2 - Td or Tdap) 10/27/2022 10/27/2012 [id number] Vaccine (4 - 2024- season) 2024 03/14/2021, 08/26/2020, 07/29/2020 [facility]-Influenza Vaccine (#1) 12/10/202401/03, [...]
--- NOTE | 2025-02-15 09:21 | CT_ITS ---
FINAL REPORT TECHNIQUE: After the administration of oral and intravenous contrast, axial images were obtained through the abdomen and pelvis by computed tomography. The study was performed with techniques to keep radiation dose as low as reasonably achievable, (ALARA). Individual dose reduction techniques using automated exposure control or adjustment of mA and/or kV according to the patient's size were employed. CLINICAL HISTORY: severe rlq ttp, hx several abd sx, bowelresection? COMPARISON: 09/28/2018 FINDINGS: Abdomen: Moderate changes of centrilobular emphysema are present. There is a moderate sized hiatal hernia as well as a possible paraesophageal hernia. The liver parenchyma is homogeneous. The gallbladder is present. The spleen, pancreas, adrenals and kidneys appear unremarkable. The aorta is normal in caliber. There is no free fluid or adenopathy. Pelvis: The appendix is not identified. Large amount of stool is present. There is fluid present in the endometrial cavity. The urinary bladder is unremarkable. A small amount of free fluid is present in the pelvis, likely physiologic. There is 1.5 cm follicle in the left ovary. IMPRESSION: Moderate changes of centrilobular emphysema, somewhat unusual for the patient's chronologic age. Correlation with alpha 1 antitrypsin status may be helpful. A moderate hiatal hernia and possible paraesophageal hernia are present. Large amount of stool in the colon. Reviewed, Interpreted and Dictated by Mendoza Murillo MD Transcribed by Yumiko Sanford Authenticated and [facility]
[2025-02-15] MEDS: ACETAMINOPHEN 1,000MG/100ML VIAL 1000 MG IV (09:45)
[2025-02-15] MEDS: ONDANSETRON 4MG/2ML VIAL 4 MG IV (09:46)
[2025-02-15] MEDS: KETOROLAC 15MG/ML VIAL 15 MG IV (09:46)
[2025-02-15] MEDS: 0.9 % SODIUM CHLORIDE 1000ML 1,000 ML 999 ML IV (09:46)
[2025-02-15 09:47] LABS: Microscopic, Urine URINE MICROSCOPIC (MICROSCOPIC)
[2025-02-15 10:01] LABS: Hematocrit 38.5 % (37.0-47.0); Hemoglobin 12.0 g/dL (12.2-16.2); Immature Granulocytes % 0.5 %; Mean Corpuscular HGB Conc 31.2 g/dL (31.8-35.4); Mean Corpuscular Hemoglobin 25.1 pg (27.0-31.2); Mean Corpuscular Volume 80.5 fl (81-99); Nucleated Red Blood Cells % 0 %; Platelet Count 352 K/mm3 (142-424); Red Blood Count 4.78 M/mm3 (4.20-5.40); Red Cell Distribution Width-SD 45.9 fL; White Blood Count 7.5 K/mm3 (4.8-10.8)
[2025-02-15 10:08] LABS: Alanine Aminotransferase 14 U/L (12-78); Albumin Level 4.9 g/dl (3.5-5.0); Albumin/Globulin Ratio 1.4 (1.1-1.8); Alkaline Phosphatase 68 U/L (38-126); Anion Gap 12.2 mEq/L (5-15); Aspartate Amino Transferase 24 U/L (14-36); Bilirubin,Total 0.4 mg/dl (0.2-1.3); Blood Urea Nitrogen 15 mg/dl (7-17); Calcium 9.3 mg/dl (8.4-10.2); Carbon Dioxide 27 mmol/L (22.0-30.0); Chloride 98 mmol/L (98-107); Creatinine Clearance Estimated 61 mL/min (50-200); Creatinine,Serum 0.70 mg/dl (0.52-1.04); Estimated Glomerular Filt Rate 101 ml/min (>60); GFR (African American) 122 ML/MIN (>60); Globulin 3.5 g/dL (1.3-3.2); Glucose 117 mg/dl (74-100); Lipase 83 U/L (23-300); Potassium 4.2 mmoL/L (3.5-5.1); Sodium 133 mmol/L (136-145); Total Protein,Serum 8.4 g/dl (6.3-8.2)
[2025-02-15 10:14] LABS: Bilirubin,Urine Negative (Negative); Color,Urine YELLOW (Yellow); Glucose,Urine (UA) Negative (Negative); Ketones,Urine Negative (Negative); Leukocyte Esterase,Urine Negative (Negative); PH,Urine 7.0 (5.0-8.5); Protein,Urine Negative (Negative); Specific Gravity, Urine 1.020 (1.005-1.030); Urobilinogen,Urine 0.2 EU/dl (0.2)
[2025-02-15 10:32] LABS: Bacteria,Urine Trace /lpf; WBC,Urine Occasional #/hpf (0-3)
[2025-02-15 11:10] LABS: HCG Qualitative, Serum Negative (Negative)
[2025-02-15] MEDS: IOPAMIDOL-370 (76%);100ML BOTTLE 70 ML IV (11:17)
[2025-02-15 12:07] LABS: Hepatitis C Ab Qual. W/ RFX NEGATIVE (Negative)
== END 2025-02-15 13:21 | disposition home or self-care (01) ==
PROVIDERS: Emergency Provider Emergency Medicine; PCP Nurse Practitioner Family
DX: R10.31 Right lower quadrant pain (principal); K59.00 Constipation, unspecified; K44.9 Diaphragmatic hernia without obstruction or gangrene
CPT/HCPCS: 74177; 80053; 81001; 83605; 83690; 84703; 85025; 86803; 87389; 99284; 99285; J0131; J1885; J2405; J7030; Q9967